=== PATIENT | female | born 1955 | race American Indian/Alaskan Native ===

== ENCOUNTER 2018-03-20 11:51 | Inpatient (IN) | payer BC, OTHER ==
[2018-03-20] MEDS ORDERED: Sodium Chloride 0.9% 10 ML Syringe FLUSH PRN (12:03)
[2018-03-20] MEDS ORDERED: Albuterol/Ipratropium 3.0-0.5 MG/3 ML Neb Soln NEB ONE (12:05)
[2018-03-20] MEDS ORDERED: cefTRIAXone 2 GM in Sodium Chloride 0.9% 100 ML IV ONE (12:05)
[2018-03-20] MEDS ORDERED: methylPREDNISolone Sodium Succinate 125 MG/2 ML SDV IVPUSH ONE (12:06)
[2018-03-20] MEDS ORDERED: Albuterol/Ipratropium 3.0-0.5 MG/3 ML Neb Soln ONE (12:09)
[2018-03-20] MEDS ORDERED: Sodium Chloride 0.9% 1,000 ML IV SCH (12:15)
--- NOTE | 2018-03-20 12:23 | EDM.PDOC ---
ED HPI GENERAL MEDICAL PROBLEM - General Chief Complaint: Respiratory Problem Stated Complaint: [facility] Time Seen by Provider: 03/20/18 11:54 Source of Information: Reports: Patient, EMS, Provider History Limitations: Reports: No Limitations - History of Present Illness INITIAL COMMENTS - FREE TEXT/NARRATIVE: The patient presents from [facility] for possible pneumonia. The patient developed a cough last Monday. She then developed shortness of breath today with exertion. They did labs that looked good and influenza and strep that were negative. Her oxygen saturations were low in the clinic at 88%. They gave her 2 breathing treatments but that did not help. They then decided to send her for reassessment and possible admission. EMS had her on oxygen and they gave her an albuterol treatment. She feels better now but she is still wheezing and her oxygen saturations went down as low as 87%. She quit smoking 10 days ago. She has no known asthma or COPD. She has no other medical problems. She has no chest pain. She has some mild upper abdominal pain from the coughing. She has fever and chills. She has a sore throat. Onset: Gradual Duration: Day(s): (5) Severity: Moderate Improves with: Reports: None Worsens with: Reports: None Associated Symptoms: Reports: Cough, Shortness of Breath. Denies: Chest Pain, Fever/Chills, Headaches, Nausea/Vomiting - Related Data Allergies Allergy/AdvReac Type Severity Reaction Status Date / Time No Known Allergies Allergy Verified 03/20/18 11:59 Home Meds: Home Meds Ascorbate Calcium [Vitamin C] 500 mg PO BID 03/20/18 [History] Calcium Carbonate/Vitamin D2 [Oyster Shell Calcium-Vit D Tab] 1 tab PO BID 03/20 [History] Cetirizine [ZyrTEC] 10 mg PO DAILY 03/20/18 [History] FLUoxetine HCl [Fluoxetine] 20 mg PO DAILY 03/20/18 [History] Fluticasone Propionate [Flonase Allergy Relief] 9.2 spray NASBOTH DAILY [History] Iron Polysaccharide Complex [Poly-Iron] 150 mg PO BID 03/20/18 [History] metFORMIN [Glucophage] 1,000 mg PO WITHDINNER 03/20/18 [History] ED ROS GENERAL - Review of Systems Review Of Systems: See Below Constitutional: Reports: Fever, Chills HEENT: Reports: No Symptoms Respiratory: Reports: Shortness of Breath, Cough Cardiovascular: Reports: No Symptoms Endocrine: Reports: No Symptoms GI/Abdominal: Reports: No Symptoms : Reports: No Symptoms Musculoskeletal: Reports: No Symptoms Neurological: Reports: No Symptoms ED EXAM, GENERAL - Physical Exam Exam: See Below Exam Limited By: No Limitations General Appearance: Alert, No Apparent Distress Ears: Normal External Exam Nose: Normal Inspection Head: Atraumatic, Normocephalic Neck: Normal Inspection, Supple, Non-Tender Respiratory/Chest: No Respiratory Distress, Decreased Breath Sounds, Rhonchi, Wheezing Cardiovascular: Regular Rate, Rhythm, No Edema, No Murmur GI/Abdominal: Soft, Non-Tender, No Mass Back Exam: Normal Inspection Extremities: Normal Inspection Neurological: Alert, Oriented, No Motor/Sensory Deficits Course - Vital Signs Last Recorded V/S: Last Vital Signs Temp 98.5 F 03/20/18 11:59 Pulse 82 03/20/18 13:26 Resp 20 03/20/18 11:59 BP 109/94 H 03/20/18 11:59 Pulse Ox 92 L 03/20/18 13:26 - Orders/Labs/Meds Orders: Active Orders 24 hr Category Date Time Status Cardiac Monitoring [RC] . DIRECTED Care 03/20/18 12:04 Active Oxygen Therapy [RC] PRN Care 03/20/18 12:04 Active Peripheral IV Care [RC] . DIRECTED Care 03/20/18 12:04 Active RT Aerosol Therapy [RC] ASDIRECTED Care 03/20/18 12:05 Active CULTURE BLOOD [BC] Stat Lab 03/20/18 12:25 Received CULTURE BLOOD [BC] Stat Lab 03/20/18 12:27 Received Sodium Chloride 0.9% [Normal Saline] 1,000 ml Med 03/20/18 12:15 Active IV ASDIRECTED Sodium Chloride 0.9% [Saline Flush] Med 03/20/18 12:03 Active 10 ml FLUSH ASDIRECTED PRN Blood Culture x2 Reflex Set [OM.PC] Stat Oth 03/20/18 12:04 Ordered Peripheral IV Insertion Adult [OM.PC] Stat Oth 03/20/18 12:03 Ordered Medication Orders Sodium Chloride (Normal Saline) 1,000 mls @ 125 mls/hr IV ASDIRECTED GUILLAUME Last Admin: 03/20/18 12:26 Dose: 125 mls/hr Sodium Chloride (Saline Flush) 10 ml FLUSH ASDIRECTED PRN PRN Reason: Keep Vein Open Last Admin: 03/20/18 12:26 Dose: 10 ml Labs: Laboratory Tests 03/20/18 03/20/18 Range/Units 12:27 12:27 Lactic Acid 1.7 (0.4-2.0) mmol/L C-Reactive Protein 3.5 H* (<1.0) mg/dL Mycoplasma pneumon IgM Positive H (NEGATIVE) Meds: Medications Generic Name Dose Route Start Last Admin Trade Name Warren PRN Reason Stop Dose Admin Sodium Chloride 1,000 mls @ 125 mls/hr 03/20/18 12:15 03/20/18 12:26 Normal Saline IV 125 mls/hr ASDIRECTED GUILLAUME Administration Sodium Chloride 10 ml 03/20/18 12:03 03/20/18 12:26 Saline Flush FLUSH 10 ml ASDIRECTED PRN Administration Keep Vein Open Discontinued Medications Generic Name Dose Route Start Last Admin Trade Name Warren PRN Reason Stop Dose Admin Albuterol/Ipratropium 3 ml 03/20/18 12:05 03/20/18 12:10 Duoneb 3.0-0.5 Mg/3 Ml NEB 03/20/18 12:06 3 ml ONETIME ONE Administration Albuterol/Ipratropium Confirm 03/20/18 12:09 03/20/18 12:19 Duoneb 3.0-0.5 Mg/3 Ml Administered 03/20/18 12:10 Not Given Dose 3 ml .ROUTE .STK-MED ONE Ceftriaxone Sodium 2 gm/ 100 mls @ 200 mls/hr 03/20/18 12:05 03/20/18 12:28 Sodium Chloride IV 03/20/18 12:34 200 mls/hr ONETIME ONE Administration Methylprednisolone Sodium Succinate 125 mg 03/20/18 12:06 03/20/18 12:26 Solu-Medrol IVPUSH 03/20/18 12:07 125 mg ONETIME ONE Administration - Re-Assessments/Exams Free Text/Narrative Re-Assessment/Exam: 03/20/18 12:29 Her oxygen saturations were still low at 87%. I ordered oxygen, duoneb, IV saline lock, solu-medrol 125mg IV, blood cultures, mycoplasma and rocephin 2 grams IV. 03/20/18 15:16 Her CXR looks good. Her lactic acid was normal. Her CRP was elevated at 3.5. Her mycoplasma is positive. She is feeling better. She sounds a little better but with 2L she is at 90% to 92%. I bumped her up to 2.5L by NC. I feel she needs to be admitted. I called Dr Jesus and she agreed to the admission for hypoxia and mycoplasma pneumonia. Departure - Departure Time of Disposition: 15:20 Disposition: Admitted As Inpatient 66 Condition: Fair Clinical Impression: Hypoxia Mycoplasmal pneumonia Qualifiers: Laterality: unspecified laterality Lung location: unspecified part of lung Qualified Code(s): J15.7 - Pneumonia due to Mycoplasma pneumoniae Reactive airway disease Qualifiers: Asthma severity: moderate Asthma persistence: persistent Asthma complication type: uncomplicated Qualified Code(s): J45.40 - Moderate persistent asthma, uncomplicated - Discharge Information Forms: ED Department Discharge - My Orders Last 24 Hours: My Active Orders 03/20/18 12:03 Sodium Chloride 0.9% [Saline Flush] 10 ml FLUSH ASDIRECTED PRN Peripheral IV Insertion Adult [OM.PC] Stat 03/20/18 12:04 Cardiac Monitoring [RC] . DIRECTED Oxygen Therapy [RC] PRN Peripheral IV Care [RC] . DIRECTED Blood Culture x2 Reflex Set [OM.PC] Stat 03/20/18 12:05 RT Aerosol Therapy [RC] ASDIRECTED 03/20/18 12:15 Sodium Chloride 0.9% [Normal Saline] 1,000 ml IV ASDIRECTED 03/20/18 12:25 CULTURE BLOOD [BC] Stat 03/20/18 12:27 CULTURE BLOOD [BC] Stat - Assessment/Plan Last 24 Hours: My Active Orders 03/20/18 12:03 Sodium Chloride 0.9% [Saline Flush] 10 ml FLUSH ASDIRECTED PRN Peripheral IV Insertion Adult [OM.PC] Stat 03/20/18 12:04 Cardiac Monitoring [RC] . DIRECTED Oxygen Therapy [RC] PRN Peripheral IV Care [RC] . DIRECTED Blood Culture x2 Reflex Set [OM.PC] Stat 03/20/18 12:05 RT Aerosol Therapy [RC] ASDIRECTED 03/20/18 12:15 Sodium Chloride 0.9% [Normal Saline] 1,000 ml IV ASDIRECTED 03/20/18 12:25 CULTURE BLOOD [BC] Stat 03/20/18 12:27 CULTURE BLOOD [BC] Stat
--- NOTE | 2018-03-20 13:18 | CR ---
Chest: Two views of the chest were obtained. Comparison: No prior chest x-ray. Heart size is normal. Tortuous thoracic aorta is seen. Lungs are clear with no acute parenchymal change. Bony structures appear within normal limits for the patient's age. Impression: 1. Nothing acute is seen on two-view chest x-ray. Diagnostic code #1
[2018-03-20] MEDS ORDERED: Acetaminophen/HYDROcodone 325-5 MG Tab PO PRN (17:41)
[2018-03-20] MEDS ORDERED: Magnesium Hydroxide 400 MG/5 ML Susp 30 ML Cup PO PRN (17:41)
[2018-03-20] MEDS ORDERED: Morphine 2 MG/ML Syringe IVPUSH PRN (17:41)
[2018-03-20] MEDS ORDERED: Polyethylene Glycol 3350 Powder 17 GM Packet PO PRN (17:41)
[2018-03-20] MEDS ORDERED: Temazepam 7.5 MG Cap PO PRN (17:41)
[2018-03-20] MEDS ORDERED: Docusate Sodium 100 MG Cap PO PRN (17:41)
[2018-03-20] MEDS ORDERED: Albuterol 0.083% 2.5 MG/3 ML Neb Soln NEB PRN (17:41)
[2018-03-20] MEDS ORDERED: Bisacodyl 5 MG Tab PO PRN (17:41)
[2018-03-20] MEDS ORDERED: Promethazine 25 MG Tab PO PRN (17:46)
[2018-03-20] MEDS ORDERED: Promethazine 6.25 MG in Sodium Chloride 0.9% 50 ML IV PRN (17:46)
--- NOTE | 2018-03-20 17:53 | PCM.HP ---
H&P History of Present Illness - General Date of Service: 03/20/18 Admit Problem/Dx: Admission Diagnosis/Problem Admission Diagnosis/Problem Pneumonia Source of Information: Patient, Provider History Limitations: Reports: No Limitations - History of Present Illness Initial Comments - Free Text/Narative: HPI: This is a 62 yo female with past medical hx/o Iron deficiency anemia, Environmental Allergies, Depression, DM2 on metformin, Morbid Obesity, Hypothyroid who comes in for Mycoplasma PNA. Pt c/o F/C, sore throat, SOB, mild upper abdominal pain (from coughing) and productive cough. She denies N/V/D, decreased appetite, constipation, other GI/ symptoms. She quit smoking 10 days ago. Her symptoms slightly improved after receiving O2, duoneb, solu-medrol, Rocephin in ED. Initial labs were done at [facility] earlier today. Her initial workup in the ED showed a chemistry remarkable for CRP 3.5. Serology positive for Mycoplasma. CXR shows nothing acute. O2 saturations were low in the clinic at 88%. O2 2L NC 92%. She is subsequently admitted to the medical floor. She is a Full Code. Her PCP is LISA Back. - Related Data Allergies/Adverse Reactions: Allergies Allergy/AdvReac Type Severity Reaction Status Date / Time No Known Allergies Allergy Verified 03/20/18 11:59 Home Medications: Home Meds Ascorbate Calcium [Vitamin C] 500 mg PO DAILY 03/20/18 [History] Calcium Carbonate/Vitamin D2 [Oyster Shell Calcium-Vit D Tab] 1 tab PO DAILY 10/29 [History] FLUoxetine HCl [Fluoxetine] 20 mg PO DAILY 03/20/18 [History] Fluticasone Propionate [Flonase Allergy Relief] 1 spray NASBOTH DAILY PRN [History] Iron Polysaccharide Complex [Poly-Iron] 150 mg PO BID 03/20/18 [History] metFORMIN [Glucophage] 1,000 mg PO BIDMEALS 03/20/18 [History] Past Medical History - Past Health History Medical/Surgical History: Denies Medical/Surgical History HEENT History: Reports: Impaired Vision, Sinusitis Gastrointestinal History: Reports: Chronic Constipation 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 GI Surgical History: Reports: Cholecystectomy Female Surgical History: Reports: Hysterectomy, Salpingo-Oophorectomy Musculoskeletal Surgical History: Reports: Hip Replacement, Knee Replacement Other Musculoskeletal Surgeries/Procedures:: left knee replacement- 2010, Mar 2017 - Right knee replacement, July 2017 Right knee Replacement. Social & Family History - Family History Family Medical History: Noncontributory HEENT: Reports: Cataract Cardiac: Reports: Hypertension, RI, Stent Respiratory: Reports: None GI: Reports: Cholelithiasis Musculoskeletal: Reports: Arthritis Endocrine/Metabolic: Reports: Diabetes, type II, Hypothyroidism, Obesity/MBI 30+ Oncologic: Reports: Leukemia - Tobacco Use Smoking Status *Q: Former Smoker Years of Tobacco use: 48 Packs/Tins Daily: 2 Used Tobacco, but Quit: Yes Month/Year Tobacco Last Used: March 2018 Second Hand Smoke Exposure: No - Caffeine Use Caffeine Use: Reports: Coffee, Soda, Tea - Recreational Drug Use Recreational Drug Use: No H&P Review of Systems - Review of Systems: Review Of Systems: See Below General: Reports: Fever, Chills HEENT: Reports: Sore Throat Pulmonary: Reports: Shortness of Breath, Cough, Sputum Cardiovascular: Reports: Dyspnea on Exertion. Denies: Chest Pain, Blood Pressure Problem Gastrointestinal: Reports: Abdominal Pain (mild from coughing). Denies: Diarrhea, Nausea, Vomiting Genitourinary: Reports: No Symptoms Musculoskeletal: Reports: No Symptoms Skin: Reports: No Symptoms Psychiatric: Reports: No Symptoms Neurological: Reports: No Symptoms Exam - Exam Exam: See Below - Vital Signs Vital Signs: Last Vital Signs Temp 98.2 F 03/20/18 16:06 Pulse 80 03/20/18 16:06 Resp 18 03/20/18 16:06 BP 157/79 H 03/20/18 16:06 Pulse Ox 91 L 03/20/18 16:06 Weight: 242 lb 12.8 oz - Exam Quality Assessment: Supplemental Oxygen (2L NC), DVT Prophylaxis General: Alert, Oriented, Cooperative, Mild Distress HEENT: Conjunctiva Clear, EACs Clear, EOMI, Hearing Intact, Mucosa Moist & Doran , Nares Patent, Normal Nasal Septum, Posterior Pharynx Clear, PERRLA Neck: Supple, Trachea Midline, 2 Lungs: Decreased Breath Sounds, Rhonchi, Wheezing GI/Abdominal Exam: Normal Bowel Sounds, Soft, Non-Tender, No Organomegaly, No Distention, No Abnormal Bruit, No Mass, Pelvis Stable (Female) Exam: Deferred Rectal (Female) Exam: Deferred Back Exam: Normal Inspection Extremities: Normal Inspection, Normal Range of Motion, Non-Tender, No Pedal Edema, Normal Capillary Refill Peripheral Pulses: 2+: Posterior Tibial (L), Posterior Tibial (R), Dorsalis Pedis (L), Dorsalis Pedis (R) Skin: Warm, Dry, Intact Neurological: Cranial Nerves Intact (grossly) Neuro Extensive - Mental Status: Alert, Oriented x3, Normal Mood/Affect, Normal Cognition, Memory Intact Psychiatric: Alert, Normal Affect, Normal Mood - Patient Data Lab Results Last 24 hrs: Laboratory Results - last 24 hr 03/20/18 03/20/18 Range/Units 12:27 12:27 Lactic Acid 1.7 (0.4-2.0) mmol/L C-Reactive Protein 3.5 H* (<1.0) mg/dL Mycoplasma pneumon IgM Positive H (NEGATIVE) - Problem List (1) Hypoxia SNOMED Code(s): 257740286 ICD Code: R09.02 - HYPOXEMIA Status: Acute Priority: High Current Visit : Yes (2) Mycoplasmal pneumonia SNOMED Code(s): 20360547 ICD Code: J15.7 - PNEUMONIA DUE TO MYCOPLASMA PNEUMONIAE Status: Acute Priority: High Current Visit: Yes Qualifiers: Laterality: unspecified laterality Lung location: unspecified part of lung Qualified Code(s): J15.7 - Pneumonia due to Mycoplasma pneumoniae (3) Nicotine dependence SNOMED Code(s): 05506194 ICD Code: F17.200 - NICOTINE DEPENDENCE, UNSPECIFIED, UNCOMPLICATED Status : Chronic Priority: Low Current Visit: No Qualifiers: Nicotine product type: cigarettes Substance use status: unspecified nicotine-induced disorder Qualified Code(s): F17.219 - Nicotine dependence, cigarettes, with unspecified nicotine-induced disorders (4) Depression SNOMED Code(s): 21588734 ICD Code: F32.9 - MAJOR DEPRESSIVE DISORDER, SINGLE EPISODE, UNSPECIFIED Status: Chronic Priority: Low Current Visit: No Qualifiers: Depression Type: unspecified Qualified Code(s): F32.9 - Major depressive disorder, single episode, unspecified (5) Hypothyroid SNOMED Code(s): 27457971 ICD Code: E03.9 - HYPOTHYROIDISM, UNSPECIFIED Status: Chronic Priority: Low Current Visit: No Qualifiers: Hypothyroidism type: unspecified Qualified Code(s): E03.9 - Hypothyroidism , unspecified (6) DM type 2 (diabetes mellitus, type 2) SNOMED Code(s): 21575180 ICD Code: E11.9 - TYPE 2 DIABETES MELLITUS WITHOUT COMPLICATIONS Status: Chronic Priority: Medium Current Visit: Yes Qualifiers: Diabetes mellitus alf insulin use: without alf use Diabetes mellitus complication status: with hyperglycemia Qualified Code(s): E11.65 - Type 2 diabetes mellitus with hyperglycemia (7) Environmental allergies SNOMED Code(s): 575716821 ICD Code: Z91.09 - OTH ALLERGY STATUS, OTH THAN TO DRUGS AND BIOLG SUBSTANCES Status: Chronic Priority: Low Current Visit: No (8) Iron deficiency anemia SNOMED Code(s): 06104878 ICD Code: D50.9 - IRON DEFICIENCY ANEMIA, UNSPECIFIED Status: Chronic Priority: Low Current Visit: No Qualifiers: Iron deficiency anemia type: unspecified iron deficiency Qualified Code(s) : D50.9 - Iron deficiency anemia, unspecified (9) Morbid obesity with BMI of 40.0-44.9, adult SNOMED Code(s): 619666102 ICD Code: E66.01 - MORBID (SEVERE) OBESITY DUE TO EXCESS CALORIES; Z68.41 - BODY MASS INDEX (BMI) 40.0-44.9, ADULT Status: Acute Current Visit: Yes Problem List Initiated/Reviewed/Updated: Yes Orders Last 24hrs: Active Orders 24 hr Category Date Time Status Admission Status [Patient Status] [ADT] Routine ADT 03/20/18 15:24 Active Ambulate [RC] ASDIRECTED Care 03/20/18 17:41 Ordered Cardiac Monitoring [RC] . DIRECTED Care 03/20/18 12:04 Active Height and Weight [RC] DAILY Care 03/20/18 17:41 Ordered Intake and Output [RC] QSHIFT Care 03/20/18 17:42 Ordered May Shower [RC] ASDIRECTED Care 03/20/18 17:41 Ordered Oxygen Therapy [RC] PRN Care 03/20/18 12:04 Active Oxygen Therapy [RC] PRN Care 03/20/18 17:41 Ordered Peripheral IV Care [RC] . DIRECTED Care 03/20/18 12:04 Active RT Aerosol Therapy [RC] ASDIRECTED Care 03/20/18 12:05 Active RT Aerosol Therapy [RC] ASDIRECTED Care 03/20/18 17:43 Ordered RT Incentive Spirometry [RC] ASDIRECTED Care 03/20/18 17:35 Ordered VTE/DVT Education [RC] PER UNIT ROUTINE Care 03/20/18 17:41 Ordered Vital Signs [RC] Q4H Care 03/20/18 17:41 Ordered Consult to Advertising Coordinator [Consult to Diabetic Nurse Cons 03/20/18 17:31 Ordered Specialist] [CONS] Routine Consult to Dietary [Consult to Ballroom Dance Instructor] [CONS] Cons 03/20/18 17:38 Ordered Routine OT Evaluation and Treatment [CONS] Routine Cons 03/20/18 17:41 Ordered PT Evaluation and Treatment [CONS] Routine Cons 03/20/18 17:41 Ordered Respiratory Care Assess and Treatment [CONS] Routine Cons 03/20/18 17:41 Ordered ADA Diabetic [[place] Diet] [DIET Diet 03/20/18 Dinner Active ] Clear Liquid Diet [DIET] Diet 03/20/18 Dinner Active Chest 2V [CR] Routine Exams 03/22/18 08:00 Ordered A1C [GLYCOSYLATED HEMOGLOBIN,HGBA1C] [CHEM] AM Lab 03/21/18 05:11 Ordered BASIC METABOLIC PANEL,BMP [CHEM] AM Lab 03/22/18 05:11 Ordered BASIC METABOLIC PANEL,BMP [CHEM] AM Lab 03/23/18 05:11 Ordered BASIC METABOLIC PANEL,BMP [CHEM] AM Lab 03/24/18 05:11 Ordered BASIC METABOLIC PANEL,BMP [CHEM] AM Lab 03/25/18 05:11 Ordered C-REACTIVE PROTEIN [CHEM] AM Lab 03/21/18 05:11 Ordered C-REACTIVE PROTEIN [CHEM] AM Lab 03/22/18 05:11 Ordered C-REACTIVE PROTEIN [CHEM] AM Lab 03/23/18 05:11 Ordered C-REACTIVE PROTEIN [CHEM] AM Lab 03/24/18 05:11 Ordered C-REACTIVE PROTEIN [CHEM] AM Lab 03/25/18 05:11 Ordered CBC WITH AUTO DIFF [HEME] AM Lab 03/21/18 05:11 Ordered CBC WITH AUTO DIFF [HEME] AM Lab 03/22/18 05:11 Ordered CBC WITH AUTO DIFF [HEME] AM Lab 03/23/18 05:11 Ordered CBC WITH AUTO DIFF [HEME] AM Lab 03/24/18 05:11 Ordered CBC WITH AUTO DIFF [HEME] AM Lab 03/25/18 05:11 Ordered COMPREHENSIVE METABOLIC PN,CMP [CHEM] AM Lab 03/21/18 05:11 Ordered CULTURE BLOOD [BC] Stat Lab 03/20/18 12:25 Received CULTURE BLOOD [BC] Stat Lab 03/20/18 12:27 Received CULTURE SPUTUM + SMEAR [RM] Routine Lab 03/20/18 17:41 Ordered LIPID PANEL [CHEM] AM Lab 03/21/18 05:11 Ordered MAGNESIUM [CHEM] AM Lab 03/21/18 05:11 Ordered MAGNESIUM [CHEM] AM Lab 03/22/18 05:11 Ordered MAGNESIUM [CHEM] AM Lab 03/23/18 05:11 Ordered MAGNESIUM [CHEM] AM Lab 03/24/18 05:11 Ordered MAGNESIUM [CHEM] AM Lab 03/25/18 05:11 Ordered RESPIRATORY PANEL Routine Lab 03/20/18 17:35 Ordered STREP PNEUMONIAE ANTIGEN [MREF] Routine Lab 03/20/18 17:35 Ordered Acetaminophen [Tylenol] Med 03/20/18 17:41 Ordered 650 mg PO Q4H PRN Acetaminophen/HYDROcodone [Dora 325-5 MG] Med 03/20/18 17:41 Ordered 1 tab PO Q4H PRN Albuterol [Proventil Neb Soln] Med 03/20/18 17:41 Ordered 2.5 mg NEB Q2H PRN Albuterol/Ipratropium [DuoNeb 3.0-0.5 MG/3 ML] Med 03/20/18 17:41 Ordered 3 ml NEB Q4H PRN Azithromycin [Zithromax] 500 mg Med 03/20/18 17:45 Ordered Sodium Chloride 0.9% [Normal Saline] 250 ml IV Q24H Bisacodyl [Dulcolax] Med 03/20/18 17:41 Ordered 5 mg PO DAILY PRN Calcium Carbonate/Vitamin D2 [Oyster Shell Calcium-Vit Med 03/21/18 09:00 Ordered D Tab] 1 tab PO DAILY Docusate Sodium [Colace] Med 03/20/18 17:41 Ordered 100 mg PO BID PRN Docusate Sodium/Sennosides [Senna Plus] Med 03/20/18 17:41 Ordered 1 tab PO BID PRN FLUoxetine HCl Med 03/21/18 09:00 Ordered 20 mg PO DAILY Fluticasone Propionate [Flonase Allergy Relief] Med 03/20/18 17:31 Ordered 1 spray NASBOTH DAILY PRN Iron Polysaccharides Complex [Ferrex 150] Med 03/20/18 21:00 Ordered 150 mg PO BID Magnesium Hydroxide [Milk of Magnesia] Med 03/20/18 17:41 Ordered 30 ml PO Q12H PRN Morphine Med 03/20/18 17:41 Ordered 2 mg IVPUSH Q2H PRN Polyethylene Glycol 3350 [MiraLAX] Med 03/20/18 17:41 Ordered 17 gm PO DAILY PRN Promethazine [Phenergan] Med 03/20/18 17:46 Ordered 25 mg PO Q6H PRN Promethazine [Phenergan] 6.25 mg Med 03/20/18 17:46 Ordered Sodium Chloride 0.9% [Normal Saline] 50 ml IV Q6H Saccharomyces Boulardii [Florastor] Med 03/20/18 21:00 Ordered 250 mg PO BID Sodium Chloride 0.9% [Saline Flush] Med 03/20/18 12:03 Active 10 ml FLUSH ASDIRECTED PRN Temazepam [Restoril] Med 03/20/18 17:41 Ordered 7.5 mg PO BEDTIME PRN metFORMIN [Glucophage] Med 03/21/18 07:00 Ordered 1,000 mg PO BIDMEALS Blood Culture x2 Reflex Set [OM.PC] Stat Oth 03/20/18 12:04 Ordered Peripheral IV Insertion Adult [OM.PC] Stat Oth 03/20/18 12:03 Ordered EILEEN Hose [Antiembolic Hose] [OM.PC] Routine Oth 03/20/18 17:34 Ordered Code Status [Resuscitation Status] Routine Resus Stat 03/20/18 17:30 Ordered Medication Orders Acetaminophen (Tylenol) 650 mg PO Q4H PRN PRN Reason: Pain (Mild 1-3)/fever Hydrocodone Bitart/Acetaminophen (Dora 325-5 Mg) 1 tab PO Q4H PRN PRN Reason: Pain (moderate 4-6) Albuterol (Proventil Neb Soln) 2.5 mg NEB Q2H PRN PRN Reason: Shortness Of Breath/wheezing Albuterol/Ipratropium (Duoneb 3.0-0.5 Mg/3 Ml) 3 ml NEB Q4H PRN PRN Reason: Shortness Of Breath/wheezing Bisacodyl (Dulcolax) 5 mg PO DAILY PRN PRN Reason: Constipation Docusate Sodium (Colace) 100 mg PO BID PRN PRN Reason: Constipation Azithromycin 500 mg/ Sodium (Chloride) 250 mls @ 250 mls/hr IV Q24H GUILLAUME Promethazine HCl 6.25 mg/ (Sodium Chloride) 50.25 mls @ 100 mls/hr IV Q6H PRN PRN Reason: Nausea/Vomiting Magnesium Hydroxide (Milk Of Magnesia) 30 ml PO Q12H PRN PRN Reason: Constipation Metformin HCl (Glucophage) 1,000 mg PO BIDMEALS GUILLAUME Morphine Sulfate (Morphine) 2 mg IVPUSH Q2H PRN PRN Reason: Pain (severe 7-10) Stop: 03/21/18 17:43 Non-Formulary Medication (Calcium Carbonate/Vitamin D2 [Oyster Shell Calcium- Vit D Tab]) 1 tab PO DAILY GUILLAUME Non-Formulary Medication (Fluoxetine Hcl) 20 mg PO DAILY GUILLAUME Non-Formulary Medication (Fluticasone Propionate [Flonase Allergy Relief]) 1 spray NASBOTH DAILY PRN PRN Reason: Congestion Polyethylene Glycol (Miralax) 17 gm PO DAILY PRN PRN Reason: Constipation Polysaccharide Iron Complex (Ferrex 150) 150 mg PO BID [facility] Promethazine HCl (Phenergan) 25 mg PO Q6H PRN PRN Reason: Nausea/Vomiting Saccharomyces Boulardii (Florastor) 250 mg PO BID GUILLAUME Senna/Docusate Sodium (Senna Plus) 1 tab PO BID PRN PRN Reason: Constipation Sodium Chloride (Saline Flush) 10 ml FLUSH ASDIRECTED PRN PRN Reason: Keep Vein Open Last Admin: 03/20/18 12:26 Dose: 10 ml Temazepam (Restoril) 7.5 mg PO BEDTIME PRN PRN Reason: Sleep Assessment/Plan Comment:: I/P: Acute: Mycoplasma PNA w/ Hypoxia * Developed cough last Monday, SOB today with exertion, oxygen saturations were low in the clinic at 88% * O2 2L NC 92% * Risk Factors: She quit smoking 10 days ago * CRP 3.5 * CXR 03/20/17: nothing acute seen * Repeat CXR in 48 hr * Blood culture pending * Lactic Acid WNL * RVP, Strep pneumo, Sputum culture pending * Mycoplasma positive * Influenza and strep negative at clinic * RT/Duonebs/IS/Acapella * O2 PRN * Rocephin and Solumedrol given in ED--> D/C and start Azithromycin Nicotine dependence * She quit smoking 10 days ago * Nicotine patch --> Pt does not want Chronic: Iron deficiency anemia Environmental Allergies Depression DM2 on metformin * A1C pending * Director Of Sales Marketing consult Morbid Obesity * BMI 41.7 * Dietary consult for weight loss Hypothyroid * TSH pending Plan: Transferred to Medical Floor Droplet Isolation Other orders as indicated above Routine AM labs Clear liquid diet--> ADA in AM Daily labs PT/OT DVT/GI prophylaxis Code Status: Full Code; PCP: LISA Back
[2018-03-20] MEDS: Nicotine 7 MG/24 Hr Patch TRDERM SCH (18:25)
[2018-03-20] MEDS: Azithromycin 500 MG in Sodium Chloride 0.9% 250 ML IV SCH (18:44)
[2018-03-20] MEDS: Acetaminophen 325 MG Tab PO PRN (20:41)
[2018-03-20] MEDS: Saccharomyces Boulardii (Probiotic) 250 MG Cap PO SCH (20:42)
[2018-03-20] MEDS: Iron Polysaccharides Complex 150 MG Cap PO SCH (20:43)
[2018-03-20] MEDS: guaiFENesin/Dextromethorphan 100-10 MG/5 ML Soln 5 ML Cup PO PRN (22:26)
[2018-03-21] MEDS: Acetaminophen 325 MG Tab PO PRN (00:44)
[2018-03-21] MEDS: Albuterol/Ipratropium 3.0-0.5 MG/3 ML Neb Soln NEB PRN ×2 (00:50→09:36)
[2018-03-21 07:18] LABS: HEMOGLOBIN A1C 8.7 % (4.50-6.20)
[2018-03-21] MEDS: Iron Polysaccharides Complex 150 MG Cap PO SCH ×2 (08:20→21:08)
[2018-03-21] MEDS: FLUoxetine 20 MG Cap PO SCH (08:20)
[2018-03-21] MEDS: metFORMIN 500 MG Tab PO SCH ×2 (08:20→17:13)
[2018-03-21] MEDS: Calcium Carbonate/Vitamin D3 600 MG-200 Units Tab PO SCH (08:20)
[2018-03-21] MEDS: Saccharomyces Boulardii (Probiotic) 250 MG Cap PO SCH ×2 (08:20→21:07)
[2018-03-21] MEDS: Nicotine 7 MG/24 Hr Patch TRDERM SCH (08:21)
--- NOTE | 2018-03-21 12:56 | PCM.PN ---
- General Info Date of Service: 03/21/18 Admission Dx/Problem (Free Text): Admission Diagnosis/Problem Admission Diagnosis/Problem Pneumonia Subjective Update: Follow up Functional Status: Reports: Pain Controlled, Tolerating Diet, Ambulating, Urinating - Review of Systems General: Denies: Fever, Chills HEENT: Reports: No Symptoms Pulmonary: Reports: Cough, Sputum. Denies: Shortness of Breath Cardiovascular: Denies: Chest Pain Gastrointestinal: Denies: Abdominal Pain, Nausea, Vomiting Musculoskeletal: Reports: No Symptoms Skin: Reports: No Symptoms Neurological: Denies: Confusion, Weakness, Gait Disturbance Psychiatric: Denies: Depression, Anxiety, Agitation, Hallucinations Systems Review Comment:: No overnight issues. She feels better than yesterday. However she feels anxious and a little jittery this AM. She rested well lasts night. She is afebrile w/o leukocytosis. - Patient Data Vitals - Most Recent: Last Vital Signs Temp 36.4 C 03/21/18 08:20 Pulse 58 L 03/21/18 08:20 Resp 16 03/21/18 08:20 BP 136/69 03/21/18 08:20 Pulse Ox 96 03/21/18 09:37 Weight - Most Recent: 108.726 kg I&O - Last 24 Hours: Intake & Output 03/20/18 03/21/18 03/21/18 22:59 06:59 14:59 Intake Total 620 1300 240 Output Total 1150 Balance 620 150 240 Lab Results Last 24 Hours: Laboratory Results - last 24 hr 03/20/18 03/20/18 03/20/18 Range/Units 12:27 12:27 22:27 WBC (3.98-10.04) K/mm3 RBC (3.98-5.22) M/mm3 Hgb (11.2-15.7) gm/L Hct (34.1-44.9) % MCV (79.4-94.8) fl MCH (25.6-32.2) pg MCHC (32.2-35.5) g/dl RDW Std Deviation (36.4-46.3) fL Plt Count (182-369) K/mm3 MPV (9.4-12.3) fl Neut % (Auto) (34.0-71.1) % Lymph % (Auto) (19.3-51.7) % [place] % (Auto) (4.7-12.5) % Eos % (Auto) (0.7-5.8) Baso % (Auto) (0.1-1.2) % Neut # (Auto) (1.56-6.13) K/mm3 Lymph # (Auto) (1.18-3.74) K/mm3 [place] # (Auto) (0.24-0.36) K/mm3 Eos # (Auto) (0.04-0.36) K/mm3 Baso # (Auto) (0.01-0.08) K/mm3 Sodium (136-145) mEq/L Potassium (3.5-5.1) mEq/L Chloride (98-107) mEq/L Carbon Dioxide (21-32) mEq/L Anion Gap (5-15) BUN (7-18) mg/dL Creatinine (0.55-1.02) mg/dL Est Cr Clr Drug Dosing mL/min Estimated GFR (MDRD) (>60) mL/min BUN/Creatinine Ratio (14-18) Glucose (80-115) mg/dL POC Glucose 352 H (80-115) mg/dL Hemoglobin A1c (4.50-6.20) % Lactic Acid 1.7 (0.4-2.0) mmol/L Calcium (8.5-10.1) mg/dL Magnesium (1.8-2.4) mg/dl Total Bilirubin (0.2-1.0) mg/dL AST (15-37) U/L ALT (14-59) U/L Alkaline Phosphatase (46-116) U/L C-Reactive Protein 3.5 H* (<1.0) mg/dL Total Protein (6.4-8.2) g/dl Albumin (3.4-5.0) g/dl Globulin gm/dL Albumin/Globulin Ratio (1-2) Triglycerides (<150) mg/dL Cholesterol (<200) mg/dL LDL Cholesterol Direct (<100) mg/dL HDL Cholesterol (40-59) mg/dL TSH 3rd Generation (0.358-3.74) uIU/mL Mycoplasma pneumon IgM Positive H (NEGATIVE) 03/21/18 03/21/18 03/21/18 Range/Units 06:12 06:24 06:24 WBC (3.98-10.04) K/mm3 RBC (3.98-5.22) M/mm3 Hgb (11.2-15.7) gm/L Hct (34.1-44.9) % MCV (79.4-94.8) fl MCH (25.6-32.2) pg MCHC (32.2-35.5) g/dl RDW Std Deviation (36.4-46.3) fL Plt Count (182-369) K/mm3 MPV (9.4-12.3) fl Neut % (Auto) (34.0-71.1) % Lymph % (Auto) (19.3-51.7) % [place] % (Auto) (4.7-12.5) % Eos % (Auto) (0.7-5.8) Baso % (Auto) (0.1-1.2) % Neut # (Auto) (1.56-6.13) K/mm3 Lymph # (Auto) (1.18-3.74) K/mm3 [place] # (Auto) (0.24-0.36) K/mm3 Eos # (Auto) (0.04-0.36) K/mm3 Baso # (Auto) (0.01-0.08) K/mm3 Sodium 138 (136-145) mEq/L Potassium 3.7 (3.5-5.1) mEq/L Chloride 102 (98-107) mEq/L Carbon Dioxide 27 (21-32) mEq/L Anion Gap 12.7 (5-15) BUN 15 (7-18) mg/dL Creatinine 0.6 (0.55-1.02) mg/dL Est Cr Clr Drug Dosing 83.95 mL/min Estimated GFR (MDRD) > 60 (>60) mL/min BUN/Creatinine Ratio 25.0 H (14-18) Glucose 259 H (80-115) mg/dL POC Glucose 256 H (80-115) mg/dL Hemoglobin A1c 8.70 H (4.50-6.20) % Lactic Acid (0.4-2.0) mmol/L Calcium 8.5 (8.5-10.1) mg/dL Magnesium 2.2 (1.8-2.4) mg/dl Total Bilirubin 0.7 (0.2-1.0) mg/dL AST 27 (15-37) U/L ALT 45 (14-59) U/L Alkaline Phosphatase 75 (46-116) U/L C-Reactive Protein 7.5 H* (<1.0) mg/dL Total Protein 6.9 (6.4-8.2) g/dl Albumin 3.4 (3.4-5.0) g/dl Globulin 3.5 gm/dL Albumin/Globulin Ratio 1.0 (1-2) Triglycerides 120 (<150) mg/dL Cholesterol 197 (<200) mg/dL LDL Cholesterol Direct 142 H* (<100) mg/dL HDL Cholesterol 45.0 (40-59) mg/dL TSH 3rd Generation 2.860 (0.358-3.74) uIU/mL Mycoplasma pneumon IgM (NEGATIVE) 03/21/18 03/21/18 Range/Units 06:24 11:15 WBC 6.75 (3.98-10.04) K/mm3 RBC 4.66 (3.98-5.22) M/mm3 Hgb 13.1 (11.2-15.7) gm/L Hct 38.8 (34.1-44.9) % MCV 83.3 (79.4-94.8) fl MCH 28.1 (25.6-32.2) pg MCHC 33.8 (32.2-35.5) g/dl RDW Std Deviation 40.2 (36.4-46.3) fL Plt Count 123 L (182-369) K/mm3 MPV 11.8 (9.4-12.3) fl Neut % (Auto) 79.9 H (34.0-71.1) % Lymph % (Auto) 13.5 L (19.3-51.7) % [place] % (Auto) 6.4 (4.7-12.5) % Eos % (Auto) 0 L (0.7-5.8) Baso % (Auto) 0.1 (0.1-1.2) % Neut # (Auto) 5.39 (1.56-6.13) K/mm3 Lymph # (Auto) 0.91 L (1.18-3.74) K/mm3 [place] # (Auto) 0.43 H (0.24-0.36) K/mm3 Eos # (Auto) 0.00 L (0.04-0.36) K/mm3 Baso # (Auto) 0.01 (0.01-0.08) K/mm3 Sodium (136-145) mEq/L Potassium (3.5-5.1) mEq/L Chloride (98-107) mEq/L Carbon Dioxide (21-32) mEq/L Anion Gap (5-15) BUN (7-18) mg/dL Creatinine (0.55-1.02) mg/dL Est Cr Clr Drug Dosing mL/min Estimated GFR (MDRD) (>60) mL/min BUN/Creatinine Ratio (14-18) Glucose (80-115) mg/dL POC Glucose 367 H (80-115) mg/dL Hemoglobin A1c (4.50-6.20) % Lactic Acid (0.4-2.0) mmol/L Calcium (8.5-10.1) mg/dL Magnesium (1.8-2.4) mg/dl Total Bilirubin (0.2-1.0) mg/dL AST (15-37) U/L ALT (14-59) U/L Alkaline Phosphatase (46-116) U/L C-Reactive Protein (<1.0) mg/dL Total Protein (6.4-8.2) g/dl Albumin (3.4-5.0) g/dl Globulin gm/dL Albumin/Globulin Ratio (1-2) Triglycerides (<150) mg/dL Cholesterol (<200) mg/dL LDL Cholesterol Direct (<100) mg/dL HDL Cholesterol (40-59) mg/dL TSH 3rd Generation (0.358-3.74) uIU/mL Mycoplasma pneumon IgM (NEGATIVE) Jason Results Last 24 Hours: Microbiology 03/20/18 12:27 Aerobic Blood Culture - Preliminary Blood - Venous - Lab Draw NO GROWTH AFTER 1 DAY Anaerobic Blood Culture - Preliminary NO GROWTH AFTER 1 DAY 03/20/18 12:25 Aerobic Blood Culture - Preliminary Blood - Venous NO GROWTH AFTER 1 DAY Anaerobic Blood Culture - Preliminary NO GROWTH AFTER 1 DAY Med Orders - Current: Current Medications Acetaminophen (Tylenol) 650 mg PO Q4H PRN PRN Reason: Pain (Mild 1-3)/fever Last Admin: 03/21/18 00:44 Dose: 650 mg Hydrocodone Bitart/Acetaminophen ([place] 325-5 Mg) 1 tab PO Q4H PRN PRN Reason: Pain (moderate 4-6) Albuterol (Proventil Neb Soln) 2.5 mg NEB Q2H PRN PRN Reason: Shortness Of Breath/wheezing Albuterol/Ipratropium (Duoneb 3.0-0.5 Mg/3 Ml) 3 ml NEB Q4H PRN PRN Reason: Shortness Of Breath/wheezing Last Admin: 03/21/18 09:36 Dose: 3 ml Bisacodyl (Dulcolax) 5 mg PO DAILY PRN PRN Reason: Constipation Calcium Carbonate (Calcium Carbonate/Vitamin D 600 Mg-200 Unit) 1 tab PO DAILY [facility] Last Admin: 03/21/18 08:20 Dose: 1 tab Docusate Sodium (Colace) 100 mg PO BID PRN PRN Reason: Constipation Flunisolide (Nasalide Nasal [place]) 0 ml NASBOTH Q12H PRN PRN Reason: Congestion Fluoxetine HCl (Prozac) 20 mg PO DAILY [facility] Last Admin: 03/21/18 08:20 Dose: 20 mg Guaifenesin/Phenylephrine HCl (Robitussin Dm) 5 ml PO Q4H PRN PRN Reason: Cough Last Admin: 03/20/18 22:26 Dose: 5 ml Azithromycin 500 mg/ Sodium (Chloride) 250 mls @ 250 mls/hr IV Q24H [facility] Last Admin: 03/20/18 18:44 Dose: 250 mls/hr Promethazine HCl 6.25 mg/ (Sodium Chloride) 50.25 mls @ 100 mls/hr IV Q6H PRN PRN Reason: Nausea/Vomiting Insulin Human Lispro (Humalog) 0 unit SUBCUT QIDACANDBED [facility]; Protocol Magnesium Hydroxide (Milk Of Magnesia) 30 ml PO Q12H PRN PRN Reason: Constipation Metformin HCl (Glucophage) 1,000 mg PO BIDMEALS [facility] Last Admin: 03/21/18 08:20 Dose: 1,000 mg Miscellaneous Information (Remove Patch) 1 ea TRDERM DAILY [facility] Last Admin: 03/21/18 08:22 Dose: Not Given Morphine Sulfate (Morphine) 2 mg IVPUSH Q2H PRN PRN Reason: Pain (severe 7-10) Stop: 03/21/18 17:43 Nicotine (Habitrol) 7 mg TRDERM DAILY [facility] Last Admin: 03/21/18 08:21 Dose: Not Given Polyethylene Glycol (Miralax) 17 gm PO DAILY PRN PRN Reason: Constipation Polysaccharide Iron Complex (Ferrex 150) 150 mg PO BID [facility] Last Admin: 03/21/18 08:20 Dose: 150 mg Promethazine HCl (Phenergan) 25 mg PO Q6H PRN PRN Reason: Nausea/Vomiting Saccharomyces Boulardii (Florastor) 250 mg PO BID [facility] Last Admin: 03/21/18 08:20 Dose: 250 mg Senna/Docusate Sodium (Senna Plus) 1 tab PO BID PRN PRN Reason: Constipation Sodium Chloride (Saline Flush) 10 ml FLUSH ASDIRECTED PRN PRN Reason: Keep Vein Open Last Admin: 03/20/18 12:26 Dose: 10 ml Temazepam (Restoril) 7.5 mg PO BEDTIME PRN PRN Reason: Sleep Discontinued Medications Albuterol/Ipratropium (Duoneb 3.0-0.5 Mg/3 Ml) 3 ml NEB ONETIME ONE Stop: 03/20/18 12:06 Last Admin: 03/20/18 12:10 Dose: 3 ml Albuterol/Ipratropium (Duoneb 3.0-0.5 Mg/3 Ml) Confirm Administered Dose 3 ml .ROUTE .STK-MED ONE Stop: 03/20/18 12:10 Last Admin: 03/20/18 12:19 Dose: Not Given Ceftriaxone Sodium 2 gm/ (Sodium Chloride) 100 mls @ 200 mls/hr IV ONETIME ONE Stop: 03/20/18 12:34 Last Admin: 03/20/18 12:28 Dose: 200 mls/hr Sodium Chloride (Normal Saline) 1,000 mls @ 125 mls/hr IV ASDIRECTED [facility] Last Admin: 03/20/18 12:26 Dose: 125 mls/hr Methylprednisolone Sodium Succinate (Solu-Medrol) 125 mg IVPUSH ONETIME ONE Stop: 03/20/18 12:07 Last Admin: 03/20/18 12:26 Dose: 125 mg - Exam General: Alert, Oriented, Cooperative, No Acute Distress, Other (Morbidly Obese) HEENT: Pupils Equal, Pupils Reactive, EOMI, Mucous Membr. Moist/[place] Neck: Supple, Trachea Midline Lungs: Normal Respiratory Effort, Wheezing, Other (expiratory wheezing) Cardiovascular: Regular Rate, Regular Rhythm GI/Abdominal Exam: Normal Bowel Sounds, Soft, Non-Tender, No Organomegaly, No Distention, No Abnormal Bruit, No Mass (Female) Exam: Deferred Back Exam: Normal Inspection, CVA Tenderness (L), Decreased Range of Motion Extremities: Normal Inspection, Normal Range of Motion, Non-Tender, No Pedal Edema, Normal Capillary Refill Peripheral Pulses: 2+: Dorsalis Pedis (L), Dorsalis Pedis (R) Skin: Warm, Dry, Intact Neurological: No New Focal Deficit Psy/Mental Status: Alert, Normal Affect, Normal Mood - Problem List Review Problem List Initiated/Reviewed/Updated: Yes - My Orders Last 24 Hours: My Active Orders 03/21/18 17:00 Insulin Lispro [HumaLOG] See Protocol SUBCUT QIDACANDBED 03/21/18 Lunch ADA Diabetic [[place] [employer] Diet] [DIET] - Plan Plan:: I/P: Acute: Mycoplasma Pneumonitis/Bronchitis * Developed cough last Monday, SOB today with exertion, oxygen saturations were low in the clinic at 88% * O2 2L NC 92% * Risk Factors: She quit smoking 10 days ago * CRP 3.5 --> 7.5 * CXR 03/20/17: nothing acute seen * Repeat CXR in 48 hr * Blood culture - negative * Lactic Acid WNL * RVP, Strep pneumo, Sputum culture pending * Mycoplasma positive * Influenza and strep negative at clinic * RT/IS/Acapella; Changed Douneb to Levalbuterol due to side effects * Continue Azithromycin and will start oral steroids Nicotine dependence * She quit smoking 10 days ago * Nicotine patch --> Pt does not want Chronic: Iron deficiency anemia Environmental Allergies Depression DM2 on metformin * A1C 8.70 * Core Manager consult * Provided reading material for SGLT2 and GLP1 inhibitors * Changed ISS to high from low level Morbid Obesity * BMI 41.7 * Dietary consult for weight loss * Advised LSM Hypothyroid * TSH normal Plan: She is clinically stable Droplet Isolation Routine AM labs ADA in AM Daily labs PT/OT if indicated Other orders as indicated above DVT/GI prophylaxis Encouraged to ambulate as tolerated Code Status: Full Code; PCP: LISA Back
[2018-03-21] MEDS: Levalbuterol HCl 1.25 MG/3 ML Neb NEB PRN ×2 (15:06→20:36)
[2018-03-21] MEDS: Insulin Lispro 100 Unit/ML 3 ML KwikPen SUBCUT SCH ×2 (17:13→21:27)
[2018-03-21] MEDS: Azithromycin 500 MG in Sodium Chloride 0.9% 250 ML IV SCH (17:15)
[2018-03-21] MEDS: guaiFENesin/Dextromethorphan 100-10 MG/5 ML Soln 5 ML Cup PO PRN (21:10)
[2018-03-22] MEDS: predniSONE 20 MG Tab PO SCH (06:58)
[2018-03-22] MEDS: metFORMIN 500 MG Tab PO SCH ×2 (06:58→17:11)
[2018-03-22] MEDS: Calcium Carbonate/Vitamin D3 600 MG-200 Units Tab PO SCH (08:30)
[2018-03-22] MEDS: Saccharomyces Boulardii (Probiotic) 250 MG Cap PO SCH ×2 (08:30→20:04)
[2018-03-22] MEDS: Iron Polysaccharides Complex 150 MG Cap PO SCH ×2 (08:30→20:04)
[2018-03-22] MEDS: Insulin Lispro 100 Unit/ML 3 ML KwikPen SUBCUT SCH ×4 (08:30→21:26)
[2018-03-22] MEDS: Nicotine 7 MG/24 Hr Patch TRDERM SCH (08:30)
[2018-03-22] MEDS: Enoxaparin 40 MG/0.4 ML Syringe SUBCUT SCH (08:30)
[2018-03-22] MEDS: FLUoxetine 20 MG Cap PO SCH (08:30)
--- NOTE | 2018-03-22 08:40 | CR ---
Chest: Two views of the chest are obtained. Comparison: Prior chest x-ray of 03/20/18. Heart size and mediastinum are within normal limits. Slight tortuosity of the thoracic aorta is stable. Lung markings are slightly increased from prior study possibly due to bronchitis. Lungs otherwise are clear with no alveolar type densities. Surgical clips are seen from prior cholecystectomy. Bony structure showed nothing acute. Impression: 1. Slight increased lung markings possibly due to mild bronchitis as an interval change from previous study. 2. Other incidental findings. Diagnostic code #3
[2018-03-22] MEDS: Levalbuterol HCl 1.25 MG/3 ML Neb NEB PRN ×3 (09:00→20:43)
[2018-03-22] MEDS ORDERED: glipiZIDE 2.5 MG Tab.ER PO ONE (10:05)
[2018-03-22] MEDS ORDERED: Scopolamine 1.5 MG Transdermal Patch TOP ONE (10:44)
[2018-03-22] MEDS: guaiFENesin/Dextromethorphan 100-10 MG/5 ML Soln 5 ML Cup PO SCH ×2 (14:04→20:05)
--- NOTE | 2018-03-22 15:14 | PCM.PN ---
- General Info Date of Service: 03/22/18 Admission Dx/Problem (Free Text): Admission Diagnosis/Problem Admission Diagnosis/Problem Pneumonia Subjective Update: In to see Kathe. She is sitting up in bed. She states that overall she is feeling better, but is having some nausea today. She still has a cough with "junk in my chest" but is unable to expectorate the sputum. She is ambulating and using IS/Acapella. RT duo neb treatments are helping. She is also RSV positive at this time according to the RVP, which I explained to her. I also told her it is recommended she get PFT and VICKY testing at discharge, as she may have underlying COPD and sleep apnea. She states she understands. No other concerns from nursing. She will likely go home in 1-2 days pending clinical disposition and labs. Functional Status: Reports: Pain Controlled, Tolerating Diet, Ambulating, Urinating - Review of Systems General: Reports: No Symptoms. Denies: Fever, Chills HEENT: Reports: No Symptoms Pulmonary: Reports: Cough, Sputum. Denies: Shortness of Breath, Pleuritic Chest Pain Cardiovascular: Reports: No Symptoms. Denies: Chest Pain Gastrointestinal: Reports: Nausea. Denies: Abdominal Pain, Diarrhea, Vomiting Genitourinary: Reports: No Symptoms Musculoskeletal: Reports: No Symptoms Skin: Reports: No Symptoms Neurological: Reports: No Symptoms Psychiatric: Reports: No Symptoms - Patient Data Vitals - Most Recent: Last Vital Signs Temp 98.1 F 03/22/18 07:47 Pulse 54 L 03/22/18 07:47 Resp 18 03/22/18 07:47 BP 144/66 H 03/22/18 07:47 Pulse Ox 92 L 03/22/18 09:00 Weight - Most Recent: 241 lb 6.4 oz I&O - Last 24 Hours: Intake & Output 03/22/18 03/22/18 03/22/18 06:59 14:59 22:59 Intake Total 350 0 Balance 350 0 Lab Results Last 24 Hours: Laboratory Results - last 24 hr 03/20/18 03/21/18 03/21/18 Range/Units 18:52 17:01 21:26 WBC (3.98-10.04) K/mm3 RBC (3.98-5.22) M/mm3 Hgb (11.2-15.7) gm/L Hct (34.1-44.9) % MCV (79.4-94.8) fl MCH (25.6-32.2) pg MCHC (32.2-35.5) g/dl RDW Std Deviation (36.4-46.3) fL Plt Count (182-369) K/mm3 MPV (9.4-12.3) fl Neut % (Auto) (34.0-71.1) % Lymph % (Auto) (19.3-51.7) % [place] % (Auto) (4.7-12.5) % Eos % (Auto) (0.7-5.8) Baso % (Auto) (0.1-1.2) % Neut # (Auto) (1.56-6.13) K/mm3 Lymph # (Auto) (1.18-3.74) K/mm3 [place] # (Auto) (0.24-0.36) K/mm3 Eos # (Auto) (0.04-0.36) K/mm3 Baso # (Auto) (0.01-0.08) K/mm3 Sodium (136-145) mEq/L Potassium (3.5-5.1) mEq/L Chloride (98-107) mEq/L Carbon Dioxide (21-32) mEq/L Anion Gap (5-15) BUN (7-18) mg/dL Creatinine (0.55-1.02) mg/dL Est Cr Clr Drug Dosing mL/min Estimated GFR (MDRD) (>60) mL/min BUN/Creatinine Ratio (14-18) Glucose (80-115) mg/dL POC Glucose 288 H 238 H (80-115) mg/dL Calcium (8.5-10.1) mg/dL Magnesium (1.8-2.4) mg/dl C-Reactive Protein (<1.0) mg/dL Adenovirus (PCR) Not detected (Not Detected) B. pertussis DNA (PCR) Not detected (Not Detected) B.parapertussis DNA PCR Not detected (Not Detected) C. pneumoniae DNA (PCR) Not detected (Not Detected) Coronavirus (PCR) Not detected (Not Detected) Human Metapneumovir PCR Not detected (Not Detected) Influenza A (RT-PCR) Not detected (Not Detected) Influenza B (RT-PCR) Not detected (Not Detected) M. pneumoniae (PCR) Not detected (Not Detected) Parainfluen 1,2,3,4 PCR Not detected (Not Detected) RSV (PCR) Detected H (Not Detected) Entero/Rhino (PCR) Not detected (Not Detected) 03/22/18 03/22/18 03/22/18 Range/Units 06:05 06:05 06:06 WBC 5.69 (3.98-10.04) K/mm3 RBC 4.46 (3.98-5.22) M/mm3 Hgb 12.4 (11.2-15.7) gm/L Hct 37.7 (34.1-44.9) % MCV 84.5 (79.4-94.8) fl MCH 27.8 (25.6-32.2) pg MCHC 32.9 (32.2-35.5) g/dl RDW Std Deviation 41.4 (36.4-46.3) fL Plt Count 131 L (182-369) K/mm3 MPV 11.6 (9.4-12.3) fl Neut % (Auto) 61.4 (34.0-71.1) % Lymph % (Auto) 32.2 (19.3-51.7) % [place] % (Auto) 6.0 (4.7-12.5) % Eos % (Auto) 0 L (0.7-5.8) Baso % (Auto) 0.2 (0.1-1.2) % Neut # (Auto) 3.50 (1.56-6.13) K/mm3 Lymph # (Auto) 1.83 (1.18-3.74) K/mm3 [place] # (Auto) 0.34 (0.24-0.36) K/mm3 Eos # (Auto) 0.00 L (0.04-0.36) K/mm3 Baso # (Auto) 0.01 (0.01-0.08) K/mm3 Sodium 141 (136-145) mEq/L Potassium 3.6 (3.5-5.1) mEq/L Chloride 105 (98-107) mEq/L Carbon Dioxide 29 (21-32) mEq/L Anion Gap 10.6 (5-15) BUN 16 (7-18) mg/dL Creatinine 0.6 (0.55-1.02) mg/dL Est Cr Clr Drug Dosing 84.56 mL/min Estimated GFR (MDRD) > 60 (>60) mL/min BUN/Creatinine Ratio 26.7 H (14-18) Glucose 209 H (80-115) mg/dL POC Glucose 214 H (80-115) mg/dL Calcium 8.6 (8.5-10.1) mg/dL Magnesium 1.9 (1.8-2.4) mg/dl C-Reactive Protein 3.7 H* (<1.0) mg/dL Adenovirus (PCR) (Not Detected) B. pertussis DNA (PCR) (Not Detected) B.parapertussis DNA PCR (Not Detected) C. pneumoniae DNA (PCR) (Not Detected) Coronavirus (PCR) (Not Detected) Human Metapneumovir PCR (Not Detected) Influenza A (RT-PCR) (Not Detected) Influenza B (RT-PCR) (Not Detected) M. pneumoniae (PCR) (Not Detected) Parainfluen 1,2,3,4 PCR (Not Detected) RSV (PCR) (Not Detected) Entero/Rhino (PCR) (Not Detected) 03/22/18 Range/Units 10:45 WBC (3.98-10.04) K/mm3 RBC (3.98-5.22) M/mm3 Hgb (11.2-15.7) gm/L Hct (34.1-44.9) % MCV (79.4-94.8) fl MCH (25.6-32.2) pg MCHC (32.2-35.5) g/dl RDW Std Deviation (36.4-46.3) fL Plt Count (182-369) K/mm3 MPV (9.4-12.3) fl Neut % (Auto) (34.0-71.1) % Lymph % (Auto) (19.3-51.7) % [place] % (Auto) (4.7-12.5) % Eos % (Auto) (0.7-5.8) Baso % (Auto) (0.1-1.2) % Neut # (Auto) (1.56-6.13) K/mm3 Lymph # (Auto) (1.18-3.74) K/mm3 [place] # (Auto) (0.24-0.36) K/mm3 Eos # (Auto) (0.04-0.36) K/mm3 Baso # (Auto) (0.01-0.08) K/mm3 Sodium (136-145) mEq/L Potassium (3.5-5.1) mEq/L Chloride (98-107) mEq/L Carbon Dioxide (21-32) mEq/L Anion Gap (5-15) BUN (7-18) mg/dL Creatinine (0.55-1.02) mg/dL Est Cr Clr Drug Dosing mL/min Estimated GFR (MDRD) (>60) mL/min BUN/Creatinine Ratio (14-18) Glucose (80-115) mg/dL POC Glucose 195 H (80-115) mg/dL Calcium (8.5-10.1) mg/dL Magnesium (1.8-2.4) mg/dl C-Reactive Protein (<1.0) mg/dL Adenovirus (PCR) (Not Detected) B. pertussis DNA (PCR) (Not Detected) B.parapertussis DNA PCR (Not Detected) C. pneumoniae DNA (PCR) (Not Detected) Coronavirus (PCR) (Not Detected) Human Metapneumovir PCR (Not Detected) Influenza A (RT-PCR) (Not Detected) Influenza B (RT-PCR) (Not Detected) M. pneumoniae (PCR) (Not Detected) Parainfluen 1,2,3,4 PCR (Not Detected) RSV (PCR) (Not Detected) Entero/Rhino (PCR) (Not Detected) Jason Results Last 24 Hours: Microbiology 03/20/18 12:27 Aerobic Blood Culture - Preliminary Blood - Venous - Lab Draw NO GROWTH AFTER 2 DAYS Anaerobic Blood Culture - Preliminary NO GROWTH AFTER 2 DAYS 03/20/18 12:25 Aerobic Blood Culture - Preliminary Blood - Venous NO GROWTH AFTER 2 DAYS Anaerobic Blood Culture - Preliminary NO GROWTH AFTER 2 DAYS 03/20/18 18:20 Streptococcus pneumoniae Antigen (M - Final Urine Med Orders - Current: Current Medications Acetaminophen (Tylenol) 650 mg PO Q4H PRN PRN Reason: Pain (Mild 1-3)/fever Last Admin: 03/21/18 00:44 Dose: 650 mg Hydrocodone Bitart/Acetaminophen ([place] 325-5 Mg) 1 tab PO Q4H PRN PRN Reason: Pain (moderate 4-6) Azithromycin (Zithromax) 500 mg PO DAILY@1800 [facility] Bisacodyl (Dulcolax) 5 mg PO DAILY PRN PRN Reason: Constipation Calcium Carbonate (Calcium Carbonate/Vitamin D 600 Mg-200 Unit) 1 tab PO DAILY [facility] Last Admin: 03/22/18 08:30 Dose: 1 tab Docusate Sodium (Colace) 100 mg PO BID PRN PRN Reason: Constipation Enoxaparin Sodium (Lovenox) 40 mg SUBCUT DAILY [facility] Last Admin: 03/22/18 08:30 Dose: 40 mg Flunisolide (Nasalide Nasal [place]) 0 ml NASBOTH Q12H PRN PRN Reason: Congestion Fluoxetine HCl (Prozac) 20 mg PO DAILY [facility] Last Admin: 03/22/18 08:30 Dose: 20 mg Glipizide (Glucotrol Xl) 2.5 mg PO BIDMEALS [facility] Guaifenesin/Phenylephrine HCl (Robitussin Dm) 10 ml PO TID@0700,1400,2100 [facility] Last Admin: 03/22/18 14:04 Dose: 10 ml Promethazine HCl 6.25 mg/ (Sodium Chloride) 50.25 mls @ 100 mls/hr IV Q6H PRN PRN Reason: Nausea/Vomiting Insulin Human Lispro (Humalog) 0 unit SUBCUT QIDACANDBED [facility]; Protocol Last Admin: 03/22/18 10:54 Dose: 3 units Levalbuterol HCl (Xopenex) 1.25 mg NEB Q6HRRT PRN PRN Reason: for sob/wheezing Last Admin: 03/22/18 09:00 Dose: 1.25 mg Magnesium Hydroxide (Milk Of Magnesia) 30 ml PO Q12H PRN PRN Reason: Constipation Metformin HCl (Glucophage) 1,000 mg PO BIDMEALS [facility] Last Admin: 03/22/18 06:58 Dose: 1,000 mg Miscellaneous Information (Remove Patch) 1 ea TRDERM DAILY [facility] Last Admin: 03/22/18 08:30 Dose: Not Given Miscellaneous Information (Remove Patch) 1 ea TRDERM ONETIME ONE Stop: 03/25/18 11:01 Nicotine (Habitrol) 7 mg TRDERM DAILY [facility] Last Admin: 03/22/18 08:30 Dose: Not Given Polyethylene Glycol (Miralax) 17 gm PO DAILY PRN PRN Reason: Constipation Polysaccharide Iron Complex (Ferrex 150) 150 mg PO BID [facility] Last Admin: 03/22/18 08:30 Dose: 150 mg Prednisone (Prednisone) 20 mg PO WITHBREAKFAST [facility] Last Admin: 03/22/18 06:58 Dose: 20 mg Promethazine HCl (Phenergan) 25 mg PO Q6H PRN PRN Reason: Nausea/Vomiting Saccharomyces Boulardii (Florastor) 250 mg PO BID [facility] Last Admin: 03/22/18 08:30 Dose: 250 mg Senna/Docusate Sodium (Senna Plus) 1 tab PO BID PRN PRN Reason: Constipation Sodium Chloride (Saline Flush) 10 ml FLUSH ASDIRECTED PRN PRN Reason: Keep Vein Open Last Admin: 03/20/18 12:26 Dose: 10 ml Discontinued Medications Albuterol (Proventil Neb Soln) 2.5 mg NEB Q2H PRN PRN Reason: Shortness Of Breath/wheezing Albuterol/Ipratropium (Duoneb 3.0-0.5 Mg/3 Ml) 3 ml NEB ONETIME ONE Stop: 03/20/18 12:06 Last Admin: 03/20/18 12:10 Dose: 3 ml Albuterol/Ipratropium (Duoneb 3.0-0.5 Mg/3 Ml) Confirm Administered Dose 3 ml .ROUTE .STK-MED ONE Stop: 03/20/18 12:10 Last Admin: 03/20/18 12:19 Dose: Not Given Albuterol/Ipratropium (Duoneb 3.0-0.5 Mg/3 Ml) 3 ml NEB Q4H PRN PRN Reason: Shortness Of Breath/wheezing Last Admin: 03/21/18 09:36 Dose: 3 ml Glipizide (Glucotrol Xl) 2.5 mg PO DAILY ONE Stop: 03/22/18 10:06 Last Admin: 03/22/18 10:54 Dose: 2.5 mg Guaifenesin/Phenylephrine HCl (Robitussin Dm) 5 ml PO Q4H PRN PRN Reason: Cough Last Admin: 03/21/18 21:10 Dose: 5 ml Ceftriaxone Sodium 2 gm/ (Sodium Chloride) 100 mls @ 200 mls/hr IV ONETIME ONE Stop: 03/20/18 12:34 Last Admin: 03/20/18 12:28 Dose: 200 mls/hr Sodium Chloride (Normal Saline) 1,000 mls @ 125 mls/hr IV ASDIRECTED [facility] Last Admin: 03/20/18 12:26 Dose: 125 mls/hr Azithromycin 500 mg/ Sodium (Chloride) 250 mls @ 250 mls/hr IV Q24H [facility] Last Admin: 03/21/18 17:15 Dose: 250 mls/hr Methylprednisolone Sodium Succinate (Solu-Medrol) 125 mg IVPUSH ONETIME ONE Stop: 03/20/18 12:07 Last Admin: 03/20/18 12:26 Dose: 125 mg Morphine Sulfate (Morphine) 2 mg IVPUSH Q2H PRN PRN Reason: Pain (severe 7-10) Stop: 03/21/18 17:43 Scopolamine (Transderm-Scop) 1.5 mg TOP ONETIME ONE Stop: 03/22/18 10:45 Last Admin: 03/22/18 10:54 Dose: 1.5 mg Temazepam (Restoril) 7.5 mg PO BEDTIME PRN PRN Reason: Sleep Last Admin: 03/21/18 21:09 Dose: 7.5 mg - Exam Quality Assessment: Supplemental Oxygen (0.5L NC), DVT Prophylaxis General: Alert, Oriented, Cooperative, No Acute Distress HEENT: Pupils Equal, Pupils Reactive, EOMI, Mucous Membr. Moist/[place] Neck: Supple Lungs: Normal Respiratory Effort, Wheezing Cardiovascular: Regular Rate, Regular Rhythm GI/Abdominal Exam: Normal Bowel Sounds, Soft, Non-Tender, No Organomegaly, No Distention, No Abnormal Bruit, No Mass, Pelvis Stable (Female) Exam: Deferred Back Exam: Normal Inspection Extremities: Normal Inspection, Normal Range of Motion, Non-Tender, No Pedal Edema, Normal Capillary Refill Peripheral Pulses: 2+: Posterior Tibial (L), Posterior Tibial (R), Dorsalis Pedis (L), Dorsalis Pedis (R) Skin: Warm, Dry, Intact Neurological: No New Focal Deficit Psy/Mental Status: Alert, Normal Affect, Normal Mood - Problem List & Annotations (1) Hypoxia SNOMED Code(s): 626558216 Code(s): R09.02 - HYPOXEMIA Status: Acute Priority: High Current Visit : Yes (2) Mycoplasmal pneumonia SNOMED Code(s): 16224595 Code(s): J15.7 - PNEUMONIA DUE TO MYCOPLASMA PNEUMONIAE Status: Acute Priority: High Current Visit: Yes Qualifiers: Laterality: unspecified laterality Lung location: unspecified part of lung Qualified Code(s): J15.7 - Pneumonia due to Mycoplasma pneumoniae (3) Nicotine dependence SNOMED Code(s): 76004139 Code(s): F17.200 - NICOTINE DEPENDENCE, UNSPECIFIED, UNCOMPLICATED Status: Chronic Priority: Low Current Visit: No Qualifiers: Nicotine product type: cigarettes Substance use status: unspecified nicotine-induced disorder Qualified Code(s): F17.219 - Nicotine dependence, cigarettes, with unspecified nicotine-induced disorders (4) Depression SNOMED Code(s): 73053917 Code(s): F32.9 - MAJOR DEPRESSIVE DISORDER, SINGLE EPISODE, UNSPECIFIED Status: Chronic Priority: Low Current Visit: No Qualifiers: Depression Type: unspecified Qualified Code(s): F32.9 - Major depressive disorder, single episode, unspecified (5) Hypothyroid SNOMED Code(s): 99207237 Code(s): E03.9 - HYPOTHYROIDISM, UNSPECIFIED Status: Chronic Priority: Low Current Visit: No Qualifiers: Hypothyroidism type: unspecified Qualified Code(s): E03.9 - Hypothyroidism , unspecified (6) DM type 2 (diabetes mellitus, type 2) SNOMED Code(s): 91745859 Code(s): E11.9 - TYPE 2 DIABETES MELLITUS WITHOUT COMPLICATIONS Status: Chronic Priority: Medium Current Visit: Yes Qualifiers: Diabetes mellitus liquor establishment manager insulin use: without skilled nursing use Diabetes mellitus complication status: with hyperglycemia Qualified Code(s): E11.65 - Type 2 diabetes mellitus with hyperglycemia (7) Environmental allergies SNOMED Code(s): 018115565 Code(s): Z91.09 - OTH ALLERGY STATUS, OTH THAN TO DRUGS AND BIOLG SUBSTANCES Status: Chronic Priority: Low Current Visit: No (8) Iron deficiency anemia SNOMED Code(s): 16994840 Code(s): D50.9 - IRON DEFICIENCY ANEMIA, UNSPECIFIED Status: Chronic Priority: Low Current Visit: No Qualifiers: Iron deficiency anemia type: unspecified iron deficiency Qualified Code(s) : D50.9 - Iron deficiency anemia, unspecified (9) Morbid obesity with BMI of 40.0-44.9, adult SNOMED Code(s): 718734757 Code(s): E66.01 - MORBID (SEVERE) OBESITY DUE TO EXCESS CALORIES; Z68.41 - BODY MASS INDEX (BMI) 40.0-44.9, ADULT Status: Acute Current Visit: Yes - Problem List Review Problem List Initiated/Reviewed/Updated: Yes - My Orders Last 24 Hours: My Active Orders 03/23/18 05:11 BASIC METABOLIC PANEL,BMP [CHEM] AM C-REACTIVE PROTEIN [CHEM] AM CBC WITH AUTO DIFF [HEME] AM MAGNESIUM [CHEM] AM 03/24/18 05:11 BASIC METABOLIC PANEL,BMP [CHEM] AM C-REACTIVE PROTEIN [CHEM] AM CBC WITH AUTO DIFF [HEME] AM MAGNESIUM [CHEM] AM 03/25/18 05:11 BASIC METABOLIC PANEL,BMP [CHEM] AM C-REACTIVE PROTEIN [CHEM] AM CBC WITH AUTO DIFF [HEME] AM MAGNESIUM [CHEM] AM - Plan Plan:: I/P: Acute: Mycoplasma Pneumonitis/Bronchitis, Improving * Developed cough last Monday, SOB today with exertion, oxygen saturations were low in the clinic at 88% * O2 2L NC 92%--> 0.5L 92% * Risk Factors: She quit smoking 10 days ago * CRP 3.5 --> 7.5--> 3.7 * CXR 03/20/17: nothing acute seen * CXR 03/22/17: Slight increased lung markings possibly due to mild bronchitis as an interval change from previous study. * Blood culture - negative * Lactic Acid WNL * Strep pneumo negative * Sputum culture pending collection * RVP shows RSV detected * Mycoplasma positive * Influenza and strep negative at clinic * RT/IS/Acapella; Changed Douneb to Levalbuterol due to side effects * Continue Azithromycin and will start oral steroids * Recommend PFT outpt after D/C Nicotine dependence * She quit smoking 10 days ago * Nicotine patch --> Pt does not want Chronic: Iron deficiency anemia Environmental Allergies Depression DM2 on metformin, uncontrolled * A1C 8.70 * Incident Handler consult * Provided reading material for SGLT2 and GLP1 inhibitors * Changed ISS to high from low level Morbid Obesity * BMI 41.7 * Dietary consult for weight loss * Advised LSM * Recommend VICKY testing after D/C Hypothyroid * TSH normal Plan: She is clinically stable Droplet Isolation Routine AM labs ADA in AM Daily labs PT/OT if indicated Other orders as indicated above DVT/GI prophylaxis Encouraged to ambulate as tolerated Code Status: Full Code; PCP: LISA Back D/C Plan: * F/U with PCP in 7-10 days * F/U with pulmonology for PFT r/o COPD * VICKY testing
[2018-03-22] MEDS: glipiZIDE 2.5 MG Tab.ER PO SCH (17:11)
[2018-03-22] MEDS ORDERED: Azithromycin 250 MG Tab PO SCH (18:00)
[2018-03-22] MEDS ORDERED: diphenhydrAMINE 25 MG Cap PO PRN (20:23)
[2018-03-23] MEDS: predniSONE 20 MG Tab PO SCH (06:35)
[2018-03-23] MEDS: glipiZIDE 2.5 MG Tab.ER PO SCH (06:35)
[2018-03-23] MEDS: metFORMIN 500 MG Tab PO SCH (06:35)
[2018-03-23] MEDS: FLUoxetine 20 MG Cap PO SCH (08:44)
[2018-03-23] MEDS: Calcium Carbonate/Vitamin D3 600 MG-200 Units Tab PO SCH (08:45)
[2018-03-23] MEDS: guaiFENesin/Dextromethorphan 100-10 MG/5 ML Soln 5 ML Cup PO SCH ×2 (08:45→13:06)
[2018-03-23] MEDS: Enoxaparin 40 MG/0.4 ML Syringe SUBCUT SCH (08:45)
[2018-03-23] MEDS: Saccharomyces Boulardii (Probiotic) 250 MG Cap PO SCH (08:45)
[2018-03-23] MEDS: Nicotine 7 MG/24 Hr Patch TRDERM SCH (08:45)
[2018-03-23] MEDS: Iron Polysaccharides Complex 150 MG Cap PO SCH (08:45)
[2018-03-23] MEDS: Insulin Lispro 100 Unit/ML 3 ML KwikPen SUBCUT SCH ×2 (08:46→11:43)
[2018-03-23] MEDS: Levalbuterol HCl 1.25 MG/3 ML Neb NEB PRN (09:16)
--- NOTE | 2018-03-23 16:10 | PCM.DCSUM1 ---
Discharge Summary - Hospital Course HPI Initial Comments: The patient [facility] for possible [facility]. The patient developed a cough last Monday. She then developed shortness of breath today with exertion. They did labs that looked good and influenza and strep that were negative. Her oxygen saturations were low in the clinic at 88%. They gave her 2 breathing treatments but that did not help. They then decided to send her for reassessment and possible admission. EMS had her on oxygen and they gave her an albuterol treatment. She feels better now but she is still wheezing and her oxygen saturations went down as low as 87%. She quit smoking 10 days ago. She has no known asthma or COPD. She has no other medical problems. She has no chest pain. She has some mild upper abdominal pain from the coughing. She has fever and chills. She has a sore throat. Diagnosis: Stroke: No Modified [facility] Scale: No Symptoms at All Modified Phyllis Scale Score: 0 - Discharge Data Discharge Date: 03/23/18 (ADMIT 03/20/18) Discharge Disposition: Home, Self-Care 01 Condition: Good - Discharge Diagnosis/Problem(s) (1) Hypoxia SNOMED Code(s): 169505480 ICD Code: R09.02 - HYPOXEMIA Status: Acute Priority: High Current Visit : Yes (2) Mycoplasmal pneumonia SNOMED Code(s): 30939146 ICD Code: J15.7 - PNEUMONIA DUE TO MYCOPLASMA PNEUMONIAE Status: Acute Priority: High Current Visit: Yes Qualifiers: Laterality: unspecified laterality Lung location: unspecified part of lung Qualified Code(s): J15.7 - Pneumonia due to Mycoplasma pneumoniae (3) Nicotine dependence SNOMED Code(s): 75555839 ICD Code: F17.200 - NICOTINE DEPENDENCE, UNSPECIFIED, UNCOMPLICATED Status : Chronic Priority: Low Current Visit: No Qualifiers: Nicotine product type: cigarettes Substance use status: unspecified nicotine-induced disorder Qualified Code(s): F17.219 - Nicotine dependence, cigarettes, with unspecified nicotine-induced disorders (4) Depression SNOMED Code(s): 64245325 ICD Code: F32.9 - MAJOR DEPRESSIVE DISORDER, SINGLE EPISODE, UNSPECIFIED Status: Chronic Priority: Low Current Visit: No Qualifiers: Depression Type: unspecified Qualified Code(s): F32.9 - Major depressive disorder, single episode, unspecified (5) Hypothyroid SNOMED Code(s): 91627572 ICD Code: E03.9 - HYPOTHYROIDISM, UNSPECIFIED Status: Chronic Priority: Low Current Visit: No Qualifiers: Hypothyroidism type: unspecified Qualified Code(s): E03.9 - Hypothyroidism , unspecified (6) DM type 2 (diabetes mellitus, type 2) SNOMED Code(s): 22023997 ICD Code: E11.9 - TYPE 2 DIABETES MELLITUS WITHOUT COMPLICATIONS Status: Chronic Priority: Medium Current Visit: Yes Qualifiers: Diabetes mellitus termite treater insulin use: without half-way use Diabetes mellitus complication status: with hyperglycemia Qualified Code(s): E11.65 - Type 2 diabetes mellitus with hyperglycemia (7) Environmental allergies SNOMED Code(s): 341147353 ICD Code: Z91.09 - OTH ALLERGY STATUS, OTH THAN TO DRUGS AND BIOLG SUBSTANCES Status: Chronic Priority: Low Current Visit: No (8) Iron deficiency anemia SNOMED Code(s): 25400400 ICD Code: D50.9 - IRON DEFICIENCY ANEMIA, UNSPECIFIED Status: Chronic Priority: Low Current Visit: No Qualifiers: Iron deficiency anemia type: unspecified iron deficiency Qualified Code(s) : D50.9 - Iron deficiency anemia, unspecified (9) Morbid obesity with BMI of 40.0-44.9, adult SNOMED Code(s): 986535012 ICD Code: E66.01 - MORBID (SEVERE) OBESITY DUE TO EXCESS CALORIES; Z68.41 - BODY MASS INDEX (BMI) 40.0-44.9, ADULT Status: Acute Current Visit: Yes - Patient Summary/Data Operative Procedure(s) Performed: none Complications: none Consults: Consultations 03/20/18 17:31 Consult to Baking Assistant [Consult to Diabetic Nurse Specialist] [CONS] Routine 03/20/18 17:38 Consult to Dietary [Consult to Software Consultant] [CONS] Routine 03/20/18 17:41 Respiratory Care Assess and Treatment [CONS] Routine Labs Pending at D/C: none Recommended Follow-up Testing/Procedures: Follow up with Out Patient services for PFT and Sleep Apnea testing, their number at hospital is [phone] F/U with PCP in 7-10 days Continue f/u with music educator Planned Operative Procedure(s) after DC: none Hospital Course: I/P: Acute: Mycoplasma Pneumonitis/Bronchitis and RSV, Improving * Developed cough last Monday, SOB today with exertion, oxygen saturations were low in the clinic at 88% * O2 2L NC 92%--> 0.5L 92%--> RA 94% * Risk Factors: She quit smoking 10 days ago * No leukocytosis; CRP 3.5 --> 7.5--> 3.7-->1.9 * CXR 03/20/17: nothing acute seen * CXR 03/22/17: Slight increased lung markings possibly due to mild bronchitis as an interval change from previous study. * Blood culture - negative * Lactic Acid WNL * Strep pneumo negative * Sputum culture- unable to collect * RVP shows RSV detected * Mycoplasma positive * Influenza and strep negative at clinic * RT/IS/Acapella; Changed Duoneb to Levalbuterol due to side effects * Continue Azithromycin and will start oral steroids--> Continue Azithro x3 days after D/C * Recommend PFT outpt after D/C Nicotine dependence * She quit smoking 10 days ago * Smoking cessation counseling given * Nicotine patch --> Pt does not want; states she does not need them Chronic: Iron deficiency anemia Environmental Allergies Depression HDL * Total and HDL WNL * LDL elevated at 142 * Start ASA 81mg daily for cardioprotection DM2 on metformin, uncontrolled * A1C 8.70 * Floor Covering Layer consult * Provided reading material for SGLT2 and GLP1 inhibitors * Changed ISS to high from low level * D/C with Trulicity and Jardiance Morbid Obesity * BMI 41.7 * Dietary consult for weight loss * Advised LSM * Recommend VICKY testing after D/C Hypothyroid * TSH normal Plan: She is clinically stable Droplet Isolation Routine AM labs ADA in AM Daily labs PT/OT if indicated Other orders as indicated above DVT/GI prophylaxis Encouraged to ambulate as tolerated Code Status: Full Code; PCP: LISA Back D/C Plan: * F/U with PCP in 7-10 days * F/U with pulmonology for PFT r/o COPD * VICKY testing Kathe did well here after being admitted for Mycoplasma and RSV. It is suspected it was more of a pneumonitis/bronchitis than PNA with possible underlying COPD. She was given Azithromycin, oral steroids, and breathing treatments while here with improvement. She was weaned off of O2, originally on 2L at 92% and is now 94% on RA. It is recommended she f/u with her PCP in 7-10 days and to get PFT and VICKY testing done, as she has never officially been diagnosed with COPD or sleep apnea. She will be sent home with Arithro x 3 days for completion of treatment, as well as Advair, Ipratropium/Albuterol, Zofran and scopolamine patch (has had nausea while here), and ASA (LDL elevated). Her A1C was found to be elevated while here, so she will be started on Trulicity and Jardiance as well. It is also recommended she continue f/u with nurses educator and to pursue weight loss. Encouraged to continue not smoking and was offered Nicotine patches, which she declined. Encouraged to also wear face mask at home to prevent spreading disease to others, especially small children. - Patient Instructions Diet: Diabetic Diet Activity: As Tolerated Driving: May Drive Today Showering/Bathing: May Shower Notify Provider of: Fever, Increased Pain, Nausea and/or Vomiting - Discharge Plan *PRESCRIPTION DRUG MONITORING PROGRAM REVIEWED*: Not Applicable *COPY OF PRESCRIPTION DRUG MONITORING REPORT IN PATIENT MINA: Not Applicable Prescriptions/Med Rec: Aspirin 81 mg PO BEDTIME #30 tab.chew Azithromycin 500 mg PO DAILY #3 tablet Dulaglutide [Trulicity] 0.75 mg SQ ASDIRECTED #30 ml Empagliflozin [Jardiance] 25 mg PO DAILY #30 tablet Fluticasone/Salmeterol [Advair Hfa 45-21 Mcg Inhaler] 1 puff IH BID #1 aer.w.adap Ipratropium/Albuterol Sulfate [Iprat-Albut 0.5-3(2.5) MG/3 ML] 3 ml IH Q4H #1 ampul.neb Ondansetron [Zofran ODT] 4 mg PO Q6H PRN #12 tab.dis PRN Reason: Nausea Saccharomyces Boulardii [Florastor] 250 mg PO DAILY #3 capsule Scopolamine [Transderm-Scop] 1.5 mg TD Q72H PRN #3 patch.td.3 PRN Reason: Nausea/Vomiting Home Medications: Home Meds Ascorbate Calcium [Vitamin C] 500 mg PO DAILY 03/20/18 [History] Calcium Carbonate/Vitamin D2 [Oyster Shell Calcium-Vit D Tab] 1 tab PO DAILY 10/29 [History] FLUoxetine HCl [Fluoxetine] 20 mg PO DAILY 03/20/18 [History] Fluticasone Propionate [Flonase Allergy Relief] 1 spray NASBOTH DAILY PRN [History] Iron Polysaccharide Complex [Poly-Iron] 150 mg PO BID 03/20/18 [History] metFORMIN [Glucophage] 1,000 mg PO BIDMEALS 03/20/18 [History] Dulaglutide [Trulicity] 0.75 mg SQ ASDIRECTED #30 ml 03/22/18 [Rx] Empagliflozin [Jardiance] 25 mg PO DAILY #30 tablet 03/22/18 [Rx] Aspirin 81 mg PO BEDTIME #30 tab.chew 03/23/18 [Rx] Azithromycin 500 mg PO DAILY #3 tablet 03/23/18 [Rx] Fluticasone/Salmeterol [Advair Hfa 45-21 Mcg Inhaler] 1 puff IH BID #1 aer.w.adap 03/23/18 [Rx] Ipratropium/Albuterol Sulfate [Iprat-Albut 0.5-3(2.5) MG/3 ML] 3 ml IH Q4H #1 ampul.neb 03/23/18 [Rx] Ondansetron [Zofran ODT] 4 mg PO Q6H PRN #12 tab.dis 03/23/18 [Rx] Saccharomyces Boulardii [Florastor] 250 mg PO DAILY #3 capsule 03/23/18 [Rx] Scopolamine [Transderm-Scop] 1.5 mg TD Q72H PRN #3 patch.td.3 03/23/18 [Rx] Oxygen Therapy Mode: Room Air Patient Handouts: Diarrhea, Adult, Peqm-ey-Kwez, Steps to Quit Smoking, Respiratory Syncytial Virus, Adult Referrals: Roseann Gage NP [Ordering Only Provider] - (Follow-up with primary care provider within 2 weeks and ask about an order for Sleep apnea testing.) - Discharge Summary/Plan Comment DC Time >30 min.: Yes (40) - General Info Date of Service: 03/23/18 Admission Dx/Problem (Free Text: Admission Diagnosis/Problem Admission Diagnosis/Problem Pneumonia Subjective Update: In to see Kathe. She is sitting up in bed. She is ready to go home and is feeling much better. She was complaining of some diarrhea today, but stool culture was negative for cdiff. Will send home with Florastor. She is also still having some nausea, so will send her home with some antiemetics. We discussed using a face mask at home as she was concerned about giving RSV to baby at home. Also discussed she should f/u with her PCP, get PFT and VICKY testing done, and to continue f/u with nurses educator. She states she understands. All questions and concerns were answered. No concerns from nursing. Functional Status: Reports: Pain Controlled, Tolerating Diet, Ambulating, Urinating - Review of Systems General: Reports: No Symptoms. Denies: Fever, Chills HEENT: Reports: No Symptoms Pulmonary: Reports: Cough (improving), Sputum (improving). Denies: Shortness of Breath Cardiovascular: Reports: No Symptoms Gastrointestinal: Reports: Diarrhea, Nausea. Denies: Vomiting Genitourinary: Reports: No Symptoms Musculoskeletal: Reports: No Symptoms Skin: Reports: No Symptoms Neurological: Reports: No Symptoms Psychiatric: Reports: No Symptoms - Patient Data Vitals - Most Recent: Last Vital Signs Temp 98.6 F 03/23/18 08:32 Pulse 83 03/23/18 11:41 Resp 16 03/23/18 08:32 BP 158/69 H 03/23/18 08:32 Pulse Ox 93 L 03/23/18 11:41 Weight - Most Recent: 239 lb 1.6 oz I&O - Last 24 hours: Intake & Output 03/23/18 03/23/18 03/23/18 06:59 14:59 22:59 Intake Total 900 660 Balance 900 660 Lab Results - Last 24 hrs: Laboratory Results - last 24 hr 03/22/18 03/22/18 03/23/18 Range/Units 17:10 21:15 05:12 WBC (3.98-10.04) K/mm3 RBC (3.98-5.22) M/mm3 Hgb (11.2-15.7) gm/L Hct (34.1-44.9) % MCV (79.4-94.8) fl MCH (25.6-32.2) pg MCHC (32.2-35.5) g/dl RDW Std Deviation (36.4-46.3) fL Plt Count (182-369) K/mm3 MPV (9.4-12.3) fl Neut % (Auto) (34.0-71.1) % Lymph % (Auto) (19.3-51.7) % [place] % (Auto) (4.7-12.5) % Eos % (Auto) (0.7-5.8) Baso % (Auto) (0.1-1.2) % Neut # (Auto) (1.56-6.13) K/mm3 Lymph # (Auto) (1.18-3.74) K/mm3 [place] # (Auto) (0.24-0.36) K/mm3 Eos # (Auto) (0.04-0.36) K/mm3 Baso # (Auto) (0.01-0.08) K/mm3 Manual Slide Review Sodium (136-145) mEq/L Potassium (3.5-5.1) mEq/L Chloride (98-107) mEq/L Carbon Dioxide (21-32) mEq/L Anion Gap (5-15) BUN (7-18) mg/dL Creatinine (0.55-1.02) mg/dL Est Cr Clr Drug Dosing mL/min Estimated GFR (MDRD) (>60) mL/min BUN/Creatinine Ratio (14-18) Glucose (80-115) mg/dL POC Glucose 253 H 88 196 H (80-115) mg/dL Calcium (8.5-10.1) mg/dL Magnesium (1.8-2.4) mg/dl C-Reactive Protein (<1.0) mg/dL C.difficile 027-NAP1-B1 C. difficile Tox (PCR) 03/23/18 03/23/18 03/23/18 Range/Units 05:14 05:14 11:22 WBC 5.69 (3.98-10.04) K/mm3 RBC 4.41 (3.98-5.22) M/mm3 Hgb 12.2 (11.2-15.7) gm/L Hct 37.6 (34.1-44.9) % MCV 85.3 (79.4-94.8) fl MCH 27.7 (25.6-32.2) pg MCHC 32.4 (32.2-35.5) g/dl RDW Std Deviation 41.7 (36.4-46.3) fL Plt Count 135 L (182-369) K/mm3 MPV 11.2 (9.4-12.3) fl Neut % (Auto) 58.4 (34.0-71.1) % Lymph % (Auto) 34.6 (19.3-51.7) % [place] % (Auto) 6.3 (4.7-12.5) % Eos % (Auto) 0 L (0.7-5.8) Baso % (Auto) 0.2 (0.1-1.2) % Neut # (Auto) 3.32 (1.56-6.13) K/mm3 Lymph # (Auto) 1.97 (1.18-3.74) K/mm3 [place] # (Auto) 0.36 (0.24-0.36) K/mm3 Eos # (Auto) 0.00 L (0.04-0.36) K/mm3 Baso # (Auto) 0.01 (0.01-0.08) K/mm3 Manual Slide Review Normal smear Sodium 143 (136-145) mEq/L Potassium 3.5 (3.5-5.1) mEq/L Chloride 106 (98-107) mEq/L Carbon Dioxide 29 (21-32) mEq/L Anion Gap 11.5 (5-15) BUN 16 (7-18) mg/dL Creatinine 0.6 (0.55-1.02) mg/dL Est Cr Clr Drug Dosing 84.56 mL/min Estimated GFR (MDRD) > 60 (>60) mL/min BUN/Creatinine Ratio 26.7 H (14-18) Glucose 179 H (80-115) mg/dL POC Glucose 296 H (80-115) mg/dL Calcium 8.7 (8.5-10.1) mg/dL Magnesium 1.9 (1.8-2.4) mg/dl C-Reactive Protein 1.9 H* (<1.0) mg/dL C.difficile 027-NAP1-B1 C. difficile Tox (PCR) 03/23/18 Range/Units 14:15 WBC (3.98-10.04) K/mm3 RBC (3.98-5.22) M/mm3 Hgb (11.2-15.7) gm/L Hct (34.1-44.9) % MCV (79.4-94.8) fl MCH (25.6-32.2) pg MCHC (32.2-35.5) g/dl RDW Std Deviation (36.4-46.3) fL Plt Count (182-369) K/mm3 MPV (9.4-12.3) fl Neut % (Auto) (34.0-71.1) % Lymph % (Auto) (19.3-51.7) % [place] % (Auto) (4.7-12.5) % Eos % (Auto) (0.7-5.8) Baso % (Auto) (0.1-1.2) % Neut # (Auto) (1.56-6.13) K/mm3 Lymph # (Auto) (1.18-3.74) K/mm3 [place] # (Auto) (0.24-0.36) K/mm3 Eos # (Auto) (0.04-0.36) K/mm3 Baso # (Auto) (0.01-0.08) K/mm3 Manual Slide Review Sodium (136-145) mEq/L Potassium (3.5-5.1) mEq/L Chloride (98-107) mEq/L Carbon Dioxide (21-32) mEq/L Anion Gap (5-15) BUN (7-18) mg/dL Creatinine (0.55-1.02) mg/dL Est Cr Clr Drug Dosing mL/min Estimated GFR (MDRD) (>60) mL/min BUN/Creatinine Ratio (14-18) Glucose (80-115) mg/dL POC Glucose (80-115) mg/dL Calcium (8.5-10.1) mg/dL Magnesium (1.8-2.4) mg/dl C-Reactive Protein (<1.0) mg/dL C.difficile 027-NAP1-B1 Presumptive negative C. difficile Tox (PCR) Negative THONG Results - Last 24 hrs: Microbiology 03/20/18 12:27 Aerobic Blood Culture - Preliminary Blood - Venous - Lab Draw NO GROWTH AFTER 3 DAYS Anaerobic Blood Culture - Preliminary NO GROWTH AFTER 3 DAYS 03/20/18 12:25 Aerobic Blood Culture - Preliminary Blood - Venous NO GROWTH AFTER 3 DAYS Anaerobic Blood Culture - Preliminary NO GROWTH AFTER 3 DAYS Med Orders - Current: Current Medications Acetaminophen (Tylenol) 650 mg PO Q4H PRN PRN Reason: Pain (Mild 1-3)/fever Last Admin: 03/21/18 00:44 Dose: 650 mg Hydrocodone Bitart/Acetaminophen ([place] 325-5 Mg) 1 tab PO Q4H PRN PRN Reason: Pain (moderate 4-6) Azithromycin (Zithromax) 500 mg PO DAILY@1800 [facility] Last Admin: 03/22/18 17:11 Dose: 500 mg Bisacodyl (Dulcolax) 5 mg PO DAILY PRN PRN Reason: Constipation Calcium Carbonate (Calcium Carbonate/Vitamin D 600 Mg-200 Unit) 1 tab PO DAILY [facility] Last Admin: 03/23/18 08:45 Dose: 1 tab Diphenhydramine HCl (Benadryl) 25 mg PO BEDTIME PRN PRN Reason: Insomnia Docusate Sodium (Colace) 100 mg PO BID PRN PRN Reason: Constipation Enoxaparin Sodium (Lovenox) 40 mg SUBCUT DAILY [facility] Last Admin: 03/23/18 08:45 Dose: 40 mg Flunisolide (Nasalide Nasal [place]) 0 ml NASBOTH Q12H PRN PRN Reason: Congestion Fluoxetine HCl (Prozac) 20 mg PO DAILY [facility] Last Admin: 03/23/18 08:44 Dose: 20 mg Glipizide (Glucotrol Xl) 2.5 mg PO BIDMEALS [facility] Last Admin: 03/23/18 06:35 Dose: 2.5 mg Guaifenesin/Phenylephrine HCl (Robitussin Dm) 10 ml PO TID@0700,1400,2100 [facility] Last Admin: 03/23/18 13:06 Dose: 10 ml Promethazine HCl 6.25 mg/ (Sodium Chloride) 50.25 mls @ 100 mls/hr IV Q6H PRN PRN Reason: Nausea/Vomiting Insulin Human Lispro (Humalog) 0 unit SUBCUT QIDACANDBED [facility]; Protocol Last Admin: 03/23/18 11:43 Dose: 9 units Levalbuterol HCl (Xopenex) 1.25 mg NEB Q6HRRT PRN PRN Reason: for sob/wheezing Last Admin: 03/23/18 09:16 Dose: 1.25 mg Magnesium Hydroxide (Milk Of Magnesia) 30 ml PO Q12H PRN PRN Reason: Constipation Metformin HCl (Glucophage) 1,000 mg PO BIDMEALS [facility] Last Admin: 03/23/18 06:35 Dose: 1,000 mg Miscellaneous Information (Remove Patch) 1 ea TRDERM DAILY [facility] Last Admin: 03/23/18 08:46 Dose: Not Given Miscellaneous Information (Remove Patch) 1 ea TRDERM ONETIME ONE Stop: 03/25/18 11:01 Nicotine (Habitrol) 7 mg TRDERM DAILY [facility] Last Admin: 03/23/18 08:45 Dose: Not Given Polyethylene Glycol (Miralax) 17 gm PO DAILY PRN PRN Reason: Constipation Polysaccharide Iron Complex (Ferrex 150) 150 mg PO BID [facility] Last Admin: 03/23/18 08:45 Dose: 150 mg Prednisone (Prednisone) 20 mg PO WITHBREAKFAST [facility] Last Admin: 03/23/18 06:35 Dose: 20 mg Promethazine HCl (Phenergan) 25 mg PO Q6H PRN PRN Reason: Nausea/Vomiting Saccharomyces Boulardii (Florastor) 250 mg PO BID [facility] Last Admin: 03/23/18 08:45 Dose: 250 mg Senna/Docusate Sodium (Senna Plus) 1 tab PO BID PRN PRN Reason: Constipation Sodium Chloride (Saline Flush) 10 ml FLUSH ASDIRECTED PRN PRN Reason: Keep Vein Open Last Admin: 03/20/18 12:26 Dose: 10 ml Discontinued Medications Albuterol (Proventil Neb Soln) 2.5 mg NEB Q2H PRN PRN Reason: Shortness Of Breath/wheezing Albuterol/Ipratropium (Duoneb 3.0-0.5 Mg/3 Ml) 3 ml NEB ONETIME ONE Stop: 03/20/18 12:06 Last Admin: 03/20/18 12:10 Dose: 3 ml Albuterol/Ipratropium (Duoneb 3.0-0.5 Mg/3 Ml) Confirm Administered Dose 3 ml .ROUTE .STK-MED ONE Stop: 03/20/18 12:10 Last Admin: 03/20/18 12:19 Dose: Not Given Albuterol/Ipratropium (Duoneb 3.0-0.5 Mg/3 Ml) 3 ml NEB Q4H PRN PRN Reason: Shortness Of Breath/wheezing Last Admin: 03/21/18 09:36 Dose: 3 ml Glipizide (Glucotrol Xl) 2.5 mg PO DAILY ONE Stop: 03/22/18 10:06 Last Admin: 03/22/18 10:54 Dose: 2.5 mg Guaifenesin/Phenylephrine HCl (Robitussin Dm) 5 ml PO Q4H PRN PRN Reason: Cough Last Admin: 03/21/18 21:10 Dose: 5 ml Ceftriaxone Sodium 2 gm/ (Sodium Chloride) 100 mls @ 200 mls/hr IV ONETIME ONE Stop: 03/20/18 12:34 Last Admin: 03/20/18 12:28 Dose: 200 mls/hr Sodium Chloride (Normal Saline) 1,000 mls @ 125 mls/hr IV ASDIRECTED [facility] Last Admin: 03/20/18 12:26 Dose: 125 mls/hr Azithromycin 500 mg/ Sodium (Chloride) 250 mls @ 250 mls/hr IV Q24H [facility] Last Admin: 03/21/18 17:15 Dose: 250 mls/hr Influenza Virus Vaccine (Fluzone Quad 4028-2050 Syringe) 60 mcg IM .ONCE ONE Stop: 03/23/18 15:39 Methylprednisolone Sodium Succinate (Solu-Medrol) 125 mg IVPUSH ONETIME ONE Stop: 03/20/18 12:07 Last Admin: 03/20/18 12:26 Dose: 125 mg Morphine Sulfate (Morphine) 2 mg IVPUSH Q2H PRN PRN Reason: Pain (severe 7-10) Stop: 03/21/18 17:43 Scopolamine (Transderm-Scop) 1.5 mg TOP ONETIME ONE Stop: 03/22/18 10:45 Last Admin: 03/22/18 10:54 Dose: 1.5 mg Temazepam (Restoril) 7.5 mg PO BEDTIME PRN PRN Reason: Sleep Last Admin: 03/21/18 21:09 Dose: 7.5 mg - Exam Quality Assessment: Reports: DVT Prophylaxis General: Reports: Alert, Oriented, Cooperative, No Acute Distress HEENT: Reports: Pupils Equal, Pupils Reactive, EOMI, Mucous Membr. Moist/[place] Neck: Reports: Supple Lungs: Reports: Normal Respiratory Effort, Wheezing Cardiovascular: Reports: Regular Rate, Regular Rhythm GI/Abdominal Exam: Normal Bowel Sounds, Soft, Non-Tender, No Organomegaly, No Distention, No Abnormal Bruit, No Mass, Pelvis Stable (Female) Exam: Deferred Rectal (Female) Exam: Normal Exam, Deferred Back Exam: Reports: Normal Inspection Extremities: Normal Inspection, Normal Range of Motion, Non-Tender, No Pedal Edema, Normal Capillary Refill Skin: Reports: Warm, Dry, Intact Neurological: Reports: No New Focal Deficit Psy/Mental Status: Reports: Alert, Normal Affect, Normal Mood
== END 2018-03-23 17:03 | disposition home or self-care (01) | DRG 139 ==
LOC: JD.ED 11:51 → JD.MS 15:24
PROVIDERS: ADMIT Internal Medicine Cardiovascular Disease; ATTEND Internal Medicine Cardiovascular Disease
DX: J15.7 Pneumonia due to Mycoplasma pneumoniae (principal); E11.65 Type 2 diabetes mellitus with hyperglycemia; E66.01 Morbid (severe) obesity due to excess calories; Z68.41 Body mass index [BMI] 40.0-44.9, adult; B97.4 Respiratory syncytial virus as the cause of diseases classified elsewhere; J44.0 Chronic obstructive pulmonary disease with (acute) lower respiratory infection; R09.02 Hypoxemia; F32.9 Major depressive disorder, single episode, unspecified; F17.210 Nicotine dependence, cigarettes, uncomplicated; E03.9 Hypothyroidism, unspecified; D50.9 Iron deficiency anemia, unspecified; E78.5 Hyperlipidemia, unspecified; R19.7 Diarrhea, unspecified; R11.0 Nausea; H54.7 Unspecified visual loss; K59.09 Other constipation; M19.90 Unspecified osteoarthritis, unspecified site; J45.40 Moderate persistent asthma, uncomplicated; G47.30 Sleep apnea, unspecified; Z23 Encounter for immunization; Z96.649 Presence of unspecified artificial hip joint; Z79.82 Long term (current) use of aspirin; Z79.84 Long term (current) use of oral hypoglycemic drugs; Z79.899 Other long term (current) drug therapy; Z91.048 Other nonmedicinal substance allergy status; Z96.653 Presence of artificial knee joint, bilateral; Z90.710 Acquired absence of both cervix and uterus
CPT/HCPCS: 36415; 71046; 71046-26; 80048; 80053; 80061; 82962; 83036; 83605; 83735; 84443; 85025; 86140; 86738; 87040; 87486; 87493; 87581; 87632; 87798; 87899; 90686; 94640; 94667; 94668; 94760; 94761; 96361; 96365; 96375; 99285; 99285-25; A9270-GY; G0008; J0456; J0696; J1650; J1815; J2930; J7030; J7040; J7050; J7612-GY; J7620-GY

== ENCOUNTER 2024-07-24 14:31 | Inpatient (IN) | payer OTHER ==
[2024-07-24] MEDS ORDERED: Sodium Chloride 0.9% 10 ML Syringe FLUSH PRN (15:02)
[2024-07-24] MEDS ORDERED: Sodium Chloride 0.9% 1,000 ML IV STA (15:40)
[2024-07-24 15:48] LABS: HEMATOCRIT 38.7 % (37.0-47.0); HEMOGLOBIN 12.5 gm/dl (12.0-16.0); IMMATURE GRAN ABSOLUTE AUTO 0.03 K/mm3 (0.00-0.05); IMMATURE GRAN PERCENT AUTO 0.4 % (0.0-0.4); LYMPHOCYTES ABSOLUTE AUTO 0.4 K/mm3 (1.0-4.8); LYMPHOCYTES PERCENT AUTO 4.6 % (24.0-44.0); MEAN CORPUSCULAR HEMOGLOBIN 27.3 pg (28.0-32.0); MEAN CORPUSCULAR HGB CONC 32.3 g/dl (32.0-36.0); MEAN CORPUSCULAR VOLUME 84.5 fl (83.0-99.0); MEAN PLATELET VOLUME 11.8 fl (9.4-12.3); MONOCYTES ABSOLUTE AUTO 0.5 K/mm3 (0.0-0.8); MONOCYTES PERCENT AUTO 5.6 % (0.0-8.0); NEUTROPHILS ABSOLUTE AUTO 7.5 K/mm3 (1.8-7.7); NEUTROPHILS PERCENT AUTO 89.4 % (41.0-71.0); PLATELET COUNT,PLT 100 K/mm3 (150-400); RED BLOOD CELL COUNT 4.58 M/mm3 (4.10-5.30); WHITE BLOOD CELL COUNT,WBC 8.39 K/mm3 (3.9-11.3)
[2024-07-24 16:07] LABS: A/G RATIO 1.1 (1-2); ALBUMIN 3.4 g/dl (3.4-5.0); ANION GAP 10.6 (5-15); BILIRUBIN TOTAL 0.6 mg/dL (0.2-1.0); BUN/CREATININE RATIO 18.8 (14-18); C-REACTIVE PROTEIN 0.32 mg/dL (<0.30); CALCIUM 8.5 mg/dL (8.5-10.1); CREATININE 0.8 mg/dL (0.55-1.02); EST CRCL DRUG DOSING (CG) 52.49 mL/min; POTASSIUM,K 3.6 mEq/L (3.5-5.1); PROTEIN TOTAL,TP 6.4 g/dl (6.4-8.2)
[2024-07-24 16:13] LABS: LACTIC ACID 1.9 mmol/L (0.4-2.0)
[2024-07-24] MEDS: Iopamidol 612 MG/ML 100 ML Bottle IVPUSH ONE (16:26)
[2024-07-24] MEDS: Sodium Chloride 0.9% 10 ML Syringe FLUSH ONE (16:26)
[2024-07-24 17:26] LABS: APPEARANCE,URINE CLEAR (Clear); BILIRUBIN,URINE NEGATIVE (Negative); COLOR,URINE YELLOW (Yellow); GLUCOSE,URINE NEGATIVE (Negative); KETONES,URINE NEGATIVE (Negative); LEUKOCYTE ESTERASE,URINE TRACE (Negative); NITRITE,URINE NEGATIVE (Negative); OCCULT BLOOD,URINE NEGATIVE (Negative); PROTEIN,URINE NEGATIVE (Negative); UROBILINOGEN,URINE 0.2 (0.2-1.0)
[2024-07-24 17:43] LABS: BACTERIA,URINE FEW /hpf (FEW); MUCUS,URINE FEW /hpf (FEW); RBC,URINE 0-5 /hpf (0-5); SQUAMOUS EPITHELIAL CELLS,UR 0-5 /hpf (0-5); WBC,URINE 0-5 /hpf (0-5)
[2024-07-24] MEDS: Albuterol/Ipratropium 3.0-0.5 MG/3 ML Neb Soln NEB ONE (18:35)
[2024-07-24] MEDS: Sodium Chloride 0.9% 100 ML IV SCH (18:56)
[2024-07-24] MEDS: Iopamidol 755 Mg/ML 100 ML Bottle IVPUSH ONE (18:56)
[2024-07-25] MEDS: Acetaminophen 325 MG Tab PO PRN (01:30)
[2024-07-25 08:02] LABS: HEMATOCRIT 41.9 % (37.0-47.0); HEMOGLOBIN 13.3 gm/dl (12.0-16.0); IMMATURE GRAN ABSOLUTE AUTO 0.01 K/mm3 (0.00-0.05); IMMATURE GRAN PERCENT AUTO 0.2 % (0.0-0.4); LYMPHOCYTES ABSOLUTE AUTO 1.2 K/mm3 (1.0-4.8); MEAN CORPUSCULAR HGB CONC 31.7 g/dl (32.0-36.0); MEAN PLATELET VOLUME 11.4 fl (9.4-12.3); MONOCYTES ABSOLUTE AUTO 0.5 K/mm3 (0.0-0.8); MONOCYTES PERCENT AUTO 7.1 % (0.0-8.0); NEUTROPHILS ABSOLUTE AUTO 4.8 K/mm3 (1.8-7.7); NEUTROPHILS PERCENT AUTO 73.7 % (41.0-71.0); PLATELET COUNT,PLT 112 K/mm3 (150-400); RED BLOOD CELL COUNT 4.93 M/mm3 (4.10-5.30); WHITE BLOOD CELL COUNT,WBC 6.49 K/mm3 (3.9-11.3)
[2024-07-25 08:20] LABS: A/G RATIO 1.1 (1-2); ALBUMIN 3.5 g/dl (3.4-5.0); ANION GAP 13.4 (5-15); CALCIUM 8.7 mg/dL (8.5-10.1); CREATININE 0.8 mg/dL (0.55-1.02); EST CRCL DRUG DOSING (CG) 57.31 mL/min; POTASSIUM,K 3.4 mEq/L (3.5-5.1); PROTEIN TOTAL,TP 6.8 g/dl (6.4-8.2)
[2024-07-25 08:36] LABS: BASE EXCESS ARTERIAL -1.8 (-2-2.0); BICARBONATE,ARTERIAL 23.7 meq/L (22.0-26.0); O2 SATURATION ARTERIAL 96.2 % (96.0-97.0)
[2024-07-25 08:46] LABS: CORONAVIRUS COVID-19 NAA NEGATIVE (NEGATIVE); INFLUENZA A NAA NEGATIVE (NEGATIVE); RESPIRATORY SYNCYTIAL VIR NAA NEGATIVE (NEGATIVE)
[2024-07-25 09:04] LABS: BARBITURATE SCREEN,URINE NEGATIVE (CUTOFF=200); BENZODIAZEPINES SCREEN,URINE NEGATIVE (CUTOFF=150); BUPRENORPHINE SCREEN,URINE NEGATIVE (CUTOFF=10); METHADONE SCREEN, URINE NEGATIVE (CUTOFF=200); METHAMPHETAMINES SCREEN, URINE NEGATIVE (CUTOFF=500); OXYCODONE SCREEN,URINE NEGATIVE (CUT0FF=100); THC SCREEN,URINE 20 NG/ML NEGATIVE (CUTOFF=50)
[2024-07-25 09:06] LABS: AMPHETAMINES SCREEN, URINE NEGATIVE (CUTOFF=500)
[2024-07-25] MEDS: FLUoxetine 10 MG Cap PO SCH (14:15)
[2024-07-25] MEDS: Cetirizine 10 MG Tab PO SCH (14:16)
[2024-07-25] MEDS: Enoxaparin 40 MG/0.4 ML Syringe SUBCUT SCH (14:56)
[2024-07-25] MEDS ORDERED: metFORMIN 500 MG Tab PO SCH (17:00)
[2024-07-25] MEDS: Rosuvastatin 10 MG Tab PO SCH (20:12)
[2024-07-26 04:35] LABS: BASOPHILS PERCENT AUTO 0.2 % (0.0-1.0); HEMATOCRIT 38.2 % (37.0-47.0); HEMOGLOBIN 12.4 gm/dl (12.0-16.0); IMMATURE GRAN ABSOLUTE AUTO 0.01 K/mm3 (0.00-0.05); IMMATURE GRAN PERCENT AUTO 0.2 % (0.0-0.4); LYMPHOCYTES ABSOLUTE AUTO 1.2 K/mm3 (1.0-4.8); LYMPHOCYTES PERCENT AUTO 25.4 % (24.0-44.0); MEAN CORPUSCULAR HEMOGLOBIN 26.8 pg (28.0-32.0); MEAN CORPUSCULAR HGB CONC 32.5 g/dl (32.0-36.0); MEAN CORPUSCULAR VOLUME 82.5 fl (83.0-99.0); MEAN PLATELET VOLUME 11.6 fl (9.4-12.3); MONOCYTES ABSOLUTE AUTO 0.4 K/mm3 (0.0-0.8); MONOCYTES PERCENT AUTO 9.1 % (0.0-8.0); NEUTROPHILS ABSOLUTE AUTO 2.9 K/mm3 (1.8-7.7); NEUTROPHILS PERCENT AUTO 65.1 % (41.0-71.0); PLATELET COUNT,PLT 95 K/mm3 (150-400); RED BLOOD CELL COUNT 4.63 M/mm3 (4.10-5.30); WHITE BLOOD CELL COUNT,WBC 4.52 K/mm3 (3.9-11.3)
[2024-07-26 05:00] LABS: A/G RATIO 1.1 (1-2); ALBUMIN 3.3 g/dl (3.4-5.0); BILIRUBIN TOTAL 0.9 mg/dL (0.2-1.0); CALCIUM 8.4 mg/dL (8.5-10.1); CREATININE 0.8 mg/dL (0.55-1.02); EST CRCL DRUG DOSING (CG) 57.31 mL/min; PROTEIN TOTAL,TP 6.4 g/dl (6.4-8.2)
[2024-07-26 05:18] LABS: SLIDE REVIEW ABNORMAL SMEAR
[2024-07-26] MEDS: predniSONE 20 MG Tab PO SCH (10:05)
[2024-07-26] MEDS: Albuterol/Ipratropium 3.0-0.5 MG/3 ML Neb Soln NEB SCH (10:33)
[2024-07-26] MEDS: Insulin Lispro 100 Unit/ML 3 ML KwikPen SUBCUT SCH (12:38)
[2024-07-26] MEDS ORDERED: Sodium Chloride 0.9% 1,000 ML IV SCH (15:45)
[2024-07-26 19:47] LABS: BORDETELLA PARAPERT IS1001 Not Detected (Not Detected)
[2024-07-26 20:49] LABS: TSH 1.296 uIU/mL (0.358-3.74)
[2024-07-27 05:55] LABS: BASOPHILS PERCENT AUTO 0.2 % (0.0-1.0); HEMATOCRIT 35.5 % (37.0-47.0); HEMOGLOBIN 11.7 gm/dl (12.0-16.0); IMMATURE GRAN ABSOLUTE AUTO 0.01 K/mm3 (0.00-0.05); IMMATURE GRAN PERCENT AUTO 0.2 % (0.0-0.4); LYMPHOCYTES PERCENT AUTO 22.5 % (24.0-44.0); MEAN CORPUSCULAR HEMOGLOBIN 26.9 pg (28.0-32.0); MEAN CORPUSCULAR VOLUME 81.6 fl (83.0-99.0); MEAN PLATELET VOLUME 11.6 fl (9.4-12.3); MONOCYTES ABSOLUTE AUTO 0.4 K/mm3 (0.0-0.8); MONOCYTES PERCENT AUTO 8.6 % (0.0-8.0); NEUTROPHILS PERCENT AUTO 68.5 % (41.0-71.0); PLATELET COUNT,PLT 96 K/mm3 (150-400); RED BLOOD CELL COUNT 4.35 M/mm3 (4.10-5.30); WHITE BLOOD CELL COUNT,WBC 4.32 K/mm3 (3.9-11.3)
[2024-07-27 06:24] LABS: SLIDE REVIEW ABNORMAL SMEAR
[2024-07-27 06:50] LABS: ALBUMIN 3.2 g/dl (3.4-5.0); ANION GAP 12.3 (5-15); BILIRUBIN TOTAL 0.6 mg/dL (0.2-1.0); C-REACTIVE PROTEIN 1.04 mg/dL (<0.30); CALCIUM 9.1 mg/dL (8.5-10.1); CREATININE 0.7 mg/dL (0.55-1.02); EST CRCL DRUG DOSING (CG) 65.5 mL/min; PROTEIN TOTAL,TP 6.3 g/dl (6.4-8.2)
[2024-07-27 07:12] LABS: POTASSIUM,K 3.3 mEq/L (3.5-5.1)
[2024-07-27] MEDS: Potassium Chloride 20 MEQ Tab.ER PO ONE (08:24)
== END 2024-07-27 13:07 | disposition home or self-care (01) | DRG 206 ==
LOC: JD.ED 14:31 → JD.MS 20:29
PROVIDERS: ADMIT Family Medicine; ATTEND Family Medicine
PROC: 4A033R1 Measurement of Arterial Saturation, Peripheral, Percutaneous Approach (ICD-10-PCS; principal; 2024-07-24)
DX: J98.4 Other disorders of lung (principal); Z68.41 Body mass index [BMI] 40.0-44.9, adult; H26.9 Unspecified cataract; H54.7 Unspecified visual loss; E78.00 Pure hypercholesterolemia, unspecified; I10 Essential (primary) hypertension; M19.90 Unspecified osteoarthritis, unspecified site; E03.9 Hypothyroidism, unspecified; Z96.659 Presence of unspecified artificial knee joint; Z96.649 Presence of unspecified artificial hip joint; F15.90 Other stimulant use, unspecified, uncomplicated; R10.31 Right lower quadrant pain; E66.01 Morbid (severe) obesity due to excess calories; G47.33 Obstructive sleep apnea (adult) (pediatric); R09.02 Hypoxemia; E11.65 Type 2 diabetes mellitus with hyperglycemia; Z88.8 Allergy status to other drugs, medicaments and biological substances; Z79.899 Other long term (current) drug therapy; Z87.01 Personal history of pneumonia (recurrent); Z87.440 Personal history of urinary (tract) infections; Z98.49 Cataract extraction status, unspecified eye; Z90.49 Acquired absence of other specified parts of digestive tract; Z90.710 Acquired absence of both cervix and uterus; Z87.891 Personal history of nicotine dependence; Z91.148 Patient's other noncompliance with medication regimen for other reason; Z79.84 Long term (current) use of oral hypoglycemic drugs; Z79.02 Long term (current) use of antithrombotics/antiplatelets
CPT/HCPCS: 0241U; 36415; 36600; 71046; 71046-26; 71275; 71275-26; 74177; 74177-26; 80053; 80306; 81001; 82375; 82803; 82947; 83605; 83880; 84443; 85025; 86140; 87040; 87086; 87426-QW; 87486; 87581; 87633; 94640; 94760; 94761; 99285; A9270-GY; J1650; J1815; J7512; Q9967